=== PATIENT | male | born 1965 | race Caucasian/White ===

== ENCOUNTER 2016-11-03 18:24 | Inpatient (IN) | payer OTHER ==
[2016-11-03 18:24] VITALS: BMI 37.2
--- NOTE | 2016-11-03 19:00 | ED PDOC ---
Arrival/HPI - General Time Seen by Provider: 11/03/16 18:35 Historian: Patient - History of Present Illness Narrative History of Present Illness (Text): 11/03/16 18:56 This 51 yo male presents to this ED c/o severe LLQ abdominal pain x 2 days. Patient stated pain is worsen with movement and sitting, and improves if he lays down. Patient denies similar symptoms in the past. Denies sob, cp, vomiting, diarrhea, constipation, rash, trauma, urinary symptoms, testicular pain, back pain, rectal bleeding, or hematuria. Time/Duration: Other (2 days) Symptom Onset: Sudden Symptom Course: Worsening Quality: Aching Severity Level: 6 Context: Home Past Medical History - Provider Review Nursing Documentation Reviewed: Yes - Tetanus Immunization Tetanus Immunization: Unknown - Cardiac Hx Cardiac Disorders: Yes Hx Angina: No Hx Cardiac Arrhythmia: No Hx Circulatory Problems: No Hx Congestive Heart Failure: No Hx Heart Murmur: No Hx Heart Transplant: No Hx Hypertension: Yes Hx Internal Defibrillator: No Hx Mitral Valve Prolapse: No Hx Pacemaker: No Hx Peripheral Edema: No Hx Peripheral Vascular Disease: No - Pulmonary Hx Respiratory Disorders: Yes Hx Asthma: No Hx Bronchitis: No Hx Chronic Obstructive Pulmonary Disease (COPD): No Hx Emphysema: No Hx Pneumonia: Yes Hx Respiratory Aspiration: No Hx Respiratory Tract Infection: No Hx Sleep Apnea: No Hx Tuberculosis: No - Neurological Hx Neurological Disorder: No Hx Alzheimer's Disease: No HX Cerebrovascular Accident: No Hx Dementia: No Hx Dizziness: No Hx Meningitis: No Hx Migraine: No Hx Parkinson's Disease: No Hx Seizures: No Hx Transient Ischemic Attacks (TIA): No - HEENT Hx HEENT Disorder: No Hx Blind: No Hx Cataracts: No Hx Deafness: No Hx Difficulty Chewing: No Hx Epistaxis: No Hx Glaucoma: No Hx Macular Degeneration: No - Renal Hx Renal Disorder: No Hx Dialysis: No Hx Kidney Stones: No Hx Neurogenic Bladder: No Hx Pyelonephritis: No Hx Renal Cancer: No Hx Renal Failure: No - Endocrine/Metabolic Hx Endocrine Disorders: Yes Hx Adrenal Cancer: No Hx Diabetes Insipidus: No Hx Diabetes Mellitus Type 1: No Hx Diabetes Mellitus Type 2: Yes Hx Hyperthyroidism: No Hx Hypothyroidism: No Hx Systemic Lupus Erythematosus: No - Hematological/Oncological Hx Blood Disorders: No Hx AIDS: No Hx Anemia: No Hx Cancer: No Hx Chemotherapy: No Hx Cirrhosis: No Hx Hemophilia: No Hx Hepatitis A: No Hx Hepatitis B: No Hx Hepatitis C: No Hx Metastasis: No Hx Shingles: No Hx Sickle Cell Disease: No Hx Unexplained Bleeding: No - Integumentary Hx Dermatological Disorder: No Hx Basal Cell Carcinoma: No Hx Eczema: No Hx Melanoma: No Hx Psoriasis: No Hx Squamous Cell Carcinoma: No - Musculoskeletal/Rheumatological Hx Musculoskeletal Disorders: No Hx Arthritis: No Hx Back Pain: No Hx Degenerative Joint Disease: No Hx Falls: No Hx Fractures: No Hx Gout: No Hx Herniated Disk: No Hx Myasthenia Gravis: No Hx Osteoarthritis: No Hx Osteomyelitis: No Hx Osteoporosis: No Hx Rhabdomyolysis: No Hx Spinal Stenosis: No Hx Unsteady Gait: No - Gastrointestinal Hx Gastrointestinal Disorders: No Hx Colostomy: No Hx Crohn's Disease: No Hx Diverticulitis: No Hx Gall Bladder Disease: No Hx Gastroesophageal Reflux: No Hx Gastrointestinal Ulcer: No Hx Ileostomy: No Hx Liver Failure: No Hx Pancreatitis: No HX Swallowing Problems: No - Genitourinary/Gynecological Hx Genitourinary Disorders: No Hx Hematuria: No Hx Incontinence: No Hx Prostate Problems: No Hx Sexually Transmitted Diseases: No Hx Urinary Tract Infection: No - Psychiatric Hx Psychophysiologic Disorder: No Hx Anxiety: No Hx Bipolar Disorder: No Hx Depression: No Hx Emotional Abuse: No Hx Hallucinations: No Hx Panic Disorder: No Hx Paranoia: No Hx Post Traumatic Stress Disorder: No Hx Psychosis: No Hx Physical Abuse: No Hx Schizophrenia: No Hx Sexual Abuse: No Hx Substance Use: Yes - Past Surgical History Past Surgical History: No Previous - Surgical History Hx Amputation: No Hx Appendectomy: No Hx Cardiac Catheterization: No Hx Cholecystectomy: No Hx Coronary Stent: No Hx Gastric Bypass Surgery: No Hx Hysterectomy: No Hx Inguinal Hernia Repair: No Hx Joint Replacement: No Hx Kidney Transplant: No Hx Liver Transplant: No Hx Mastectomy: No Hx Musculoskeletal Surgery: No Hx Open Heart Surgery: No Hx Orthopedic Surgery: No Hx Splenectomy: No Hx Valve Replacement: No - Suicidal Assessment Feels Threatened In Home Enviroment: No Family/Social History - Physician Review Nursing Documentation Reviewed: Yes Family/Social History: No Known Family HX Smoking Status: Heavy Smoker > 10 Cigarettes Daily Hx Alcohol Use: Yes Hx Substance Use: Yes Hx Substance Use Treatment: No Allergies/Home Meds Allergies/Adverse Reactions: Allergies pcn Allergy (Uncoded 11/03/16 18:58) ANAPHYLAXIS Home Medications: Home Meds Medication Instructions Recorded Confirmed Metformin Hydrochloride [Metformin] 500 mg PO DAILY 11/25/14 11/03/16 Review of Systems - Review of Systems Constitutional: Normal. absent: Fatigue, Weight Change, Fevers, Night Sweats Eyes: Normal ENT: Normal Respiratory: Normal Cardiovascular: Normal Gastrointestinal: Abdominal Pain ((+) LLQ abdominal pain). absent: Stool Changes, Constipation, Diarrhea, Nausea, Vomiting, Appetite Changes, Hematochezia, Hematemesis, Anorexia Genitourinary Male: Normal. absent: Dysuria, Frequency, Hematuria, Urinary Output Changes, Other Musculoskeletal: Normal Skin: Normal Neurological: Normal Endocrine: Normal Hemo/Lymphatic: Normal Psychiatric: Normal Physical Exam Vital Signs Temp Pulse Resp BP Pulse Ox 11/03/16 21:14 99.7 F H 11/03/16 18:35 98.1 F 94 H 18 134/88 99 Temperature: Afebrile Blood Pressure: Normal Pulse: Regular Respiratory Rate: Normal Appearance: Positive for: Well-Appearing, Non-Toxic, Comfortable Pain Distress: None Mental Status: Positive for: Alert and Oriented X 3 - Systems Exam Head: Present: Atraumatic, Normocephalic Pupils: Present: PERRL Extroacular Muscles: Present: EOMI Conjunctiva: Present: Normal Mouth: Present: Moist Mucous Membranes Neck: Present: Normal Range of Motion Respiratory/Chest: Present: Clear to Auscultation, Good Air Exchange. No: Respiratory Distress, Accessory Muscle Use Cardiovascular: Present: Regular Rate and Rhythm, Normal S1, S2. No: Murmurs Abdomen: Present: Tenderness ((+) moderate LLQ tenderness on palpation. No erythema, ecchymosis, hernia, guarding, or rebound.), Normal Bowel Sounds. No: Distention, Peritoneal Signs, Rebound, Guarding, McBurney's Point Tender, Rovsing's Sign Present Genitourinary Male: Present: Normal External Genitalia, Circumcised Penis. No: Lesions, Penile Discharge, Testicle Tenderness, Penile Swelling, Masses, Erythema, Hernias, Testicle Swelling Back: Present: Normal Inspection. No: CVA Tenderness Upper Extremity: Present: Normal Inspection, Normal ROM, NORMAL PULSES, Neurovascularly Intact, Capillary Refill < 2s. No: Cyanosis, Edema Lower Extremity: Present: Normal Inspection. No: Edema Neurological: Present: GCS=15, CN II-XII Intact, Speech Normal, Motor Func Grossly Intact, Normal Sensory Function, Normal Cerebellar Funct, Gait Normal Skin: Present: Warm, Dry, Normal Color. No: Rashes Psychiatric: Present: Alert, Oriented x 3 Medical Decision Making ED Course and Treatment: 11/03/16 21:[address] Navas regarding patient c/o LLQ abdominal pain, leukocytosis, fever, and CT scan shows diverticulitis. Patient continues with pain. Re-evaluation Time: 21:54 Reassessment Condition: Re-examined, Improving,but remains with symptoms - Lab Interpretations Lab Results: 11/03/16 19:35 11/03/16 19:35 Lab Results 11/03/16 21:05: pO2 37, VBG pH 7.36, VBG pCO2 52.0, VBG HCO3 29.4 H, VBG Total CO2 31.0 H, VBG O2 Sat (Calc) 75.6 H, VBG Base Excess 2.8 H, VBG Potassium 4.1, Sodium 133.0, Chloride 103.0, Glucose 87, Lactate 0.7, FiO2 21.0, Venous Blood Potassium 4.1 11/03/16 19:54: Urine Color Yellow, Urine Appearance Clear, Urine pH 6.0, Ur Specific [place] >= 1.030, Urine Protein 100 H, Urine Glucose (UA) Negative, Urine Ketones Negative, Urine Blood Trace-intact H, Urine Nitrate Negative, Urine Bilirubin Negative, Urine Urobilinogen 0.2, Ur Leukocyte Esterase Negative , Urine RBC 2 - 5, Urine WBC 0 - 2, Ur Epithelial Cells 0 - 2, Urine Bacteria Mod 11/03/16 19:35: WBC 15.3 H, RBC 4.65, Hgb 14.3, Hct 42.2, MCV 90.8, MCH 30.8, MCHC 33.9, RDW 13.7, Plt Count 318, MPV 9.6, Gran % 61.5, Lymph % (Auto) 25.5, [place] % (Auto) 6.8 H, Eos % (Auto) 5.7 H, Baso % (Auto) 0.5, Gran # 9.41 H, Lymph # 3.9 H, [place] # 1.0 H, Eos # 0.9 H, Baso # 0.08, Sodium 136, Chloride 97 L , Potassium 4.0, Carbon Dioxide 31, Anion Gap 12, BUN 14, Creatinine 0.9, Est GFR ( Amer) > 60, Est GFR (Non-Af Amer) > 60, Random Glucose 101, Calcium 9.2, Total Bilirubin 0.8, AST 21, ALT 20, Alkaline Phosphatase 84, Total Protein 7.6, Albumin 4.1, Globulin 3.5, Albumin/Globulin Ratio 1.2, Lipase 47 - RAD Interpretation Narrative RAD Interpretations (Text): 11/03/16 21:27 Patient Name: RAMSES CRAWFORD FINDINGS: Hypoventilatory changes at the lung bases. The spleen, pancreas and left adrenal gland demonstrate no acute abnormalities. Evidence of fatty infiltration of the liver. 3.5 cm fat containing lesion in the right adrenal gland, appearance most consistent with a myelolipoma. The kidneys are symmetric with no evidence of hydronephrosis. Multiple subcentimeter hypoattenuating lesions in the bilateral kidneys which are too small to characterize. Atherosclerosis. No small bowel obstruction. Normal caliber appendix. Colonic diverticula. Segment of sigmoid colon demonstrates bowel wall thickening and surrounding inflammatory stranding with appearance most consistent with acute diverticulitis. Trace free fluid. No free air. Bilateral L5 pars defect. Degenerative changes. IMPRESSION: Acute diverticulitis. Please see additional details/findings as above. Some of the above findings may warrant followup evaluation. Thank you for allowing us to participate in the care of your patient. Dictated and Authenticated by: Katherine Aviles MD 11/03/2016 9:05 PM Eastern Time ([place] & [place]) Radiology Orders: 11/03/16 19:06 ABD & PELVIS IV CONTRAST ONLY [CT] Stat - Medication Orders Current Medication Orders: Aspirin (Aspirin Chewable) 81 mg PO DAILY ESTHER Last Admin: 11/04/16 09:48 Dose: 81 MG Atorvastatin Calcium (Lipitor) 40 mg PO HS ESTHER Enoxaparin Sodium (Lovenox) 40 mg SC DAILY ESTHER PRN Reason: Protocol Last Admin: 11/04/16 09:48 Dose: 40 MG Protocol for PTT Monitoring Document 11/04/16 09:48 MV (Rec: 11/04/16 09:48 [id number] Protocol Protocol for PTT Monitoring Following clinical pathway protocol (regime/therapy) Subcutaneous Administrations Document 11/04/16 09:48 MV (Rec: 11/04/16 09:48 MV [id number] Injection Site MAR Injection Site Right Abdomen Charges for Administration # of Subcutaneous Administrations 1 Hydromorphone HCl (Dilaudid) 0.5 mg IVP Q3H PRN PRN Reason: Pain, moderate (4-7) Hydromorphone HCl (Dilaudid) 1 mg IVP Q3H PRN PRN Reason: Pain, severe (8-10) Last Admin: 11/04/16 05:24 Dose: 1 MG [facility] Pain Assessment Document 11/04/16 05:24 [facility] (Rec: 11/04/16 05:24 [facility] [id number]) Pain Reassessment Is this a pain reassessment? Yes Sleep Is patient sleeping during reassessment? No Presence of Pain Presence of Pain Yes Pain Scale Used Pain Scale Used Numeric Location Left, Right or Bilateral Bilateral Pain Location Body Site Abdomen Description Description Constant IVP Administration Document 11/04/16 05:24 [facility] (Rec: 11/04/16 05:24 [id number] Charges for Administration # of IVP Administrations 1 Re-Assess: [facility] Pain Assessment Document 11/04/16 06:24 [facility] (Rec: 11/04/16 07:03 [facility] [id number]) Pain Reassessment Is this a pain reassessment? Yes Sleep Is patient sleeping during reassessment? No Presence of Pain Presence of Pain No Metronidazole (Flagyl) 100 mls @ 100 mls/hr IVPB Q8 ESTHER PRN Reason: Protocol Last Admin: 11/04/16 14:00 Dose: 100 MLS/HR eMAR Start Stop Document 11/04/16 14:00 MV (Rec: 11/04/16 15:39 MV [id number]) Intravenous Solution Start Date 11/04/16 Start Time 14:00 Sodium Chloride (Sodium Chloride 0.9%) 1,000 mls @ 100 mls/hr IV .Q10H [facility] Last Admin: 11/04/16 00:54 Dose: 100 MLS/HR eMAR Start Stop Document 11/04/16 00:54 RD (Rec: 11/04/16 00:54 RD [id number]) Intravenous Solution Start Date 11/04/16 Start Time 00:54 Levofloxacin/Dextrose (Levaquin 750mg) 150 mls @ 100 mls/hr IVPB DAILY [facility] Insulin Human Lispro (Humalog Low) 0 units SC ACHS ESTHER PRN Reason: Protocol Last Admin: 11/04/16 17:02 Dose: MAR Blood Glucose Document 11/04/16 17:02 MV (Rec: 11/04/16 17:03 MV [id number]) Blood Glucose Finger Stick Blood Glucose (70-120) 87 Nicotine (Nicoderm Cq) 1 patch TD DAILY [facility] Last Admin: 11/04/16 09:48 Dose: 1 PATCH MAR Patch Placement/Removal Document 11/04/16 09:48 MV (Rec: 11/04/16 09:48 [id number] Patch Removal Removal of previous patch done No Patch Placement Left, Right or Bilateral Left Pain Location Body Site Arm Ondansetron HCl (Zofran Inj) 4 mg IVP Q6H PRN PRN Reason: Nausea/Vomiting Last Admin: 11/04/16 07:06 Dose: 4 MG IVP Administration Document 11/04/16 07:06 GISELA (Rec: 11/04/16 07:06 GISELA [id number]) Charges for Administration # of IVP Administrations 1 Pantoprazole Sodium (Protonix Ec Tab) 40 mg PO 0630 [facility] Last Admin: 11/04/16 05:31 Dose: Not Given Non-Admin Reason: NPO Discontinued Medications Hydromorphone HCl (Dilaudid) 1 mg IVP STAT STA Stop: 11/03/16 21:29 Last Admin: 11/03/16 21:47 Dose: 1 MG IVP Administration Document 11/03/16 21:47 RD (Rec: 11/03/16 21:47 [id number] Charges for Administration # of IVP Administrations 1 Sodium Chloride (Sodium Chloride 0.9%) 1,000 mls @ 1,000 mls/hr IV .Q1H STA Stop: 11/03/16 20:04 Last Admin: 11/03/16 19:40 Dose: 1,000 MLS/HR eMAR Start Stop Document 11/03/16 19:40 RD (Rec: 11/03/16 19:40 RD [id number] Intravenous Solution Start Date 11/03/16 Start Time 19:40 End Date 11/03/16 End time 20:40 Total Infusion Time 60 Levofloxacin/Dextrose (Levaquin 750mg) 150 mls @ 100 mls/hr IVPB STAT STA Stop: 11/03/16 22:56 Last Admin: 11/03/16 21:47 Dose: 100 MLS/HR eMAR Start Stop Document 11/03/16 21:47 RD (Rec: 11/03/16 21:47 RD [email or web address] Intravenous Solution Start Date 11/03/16 Start Time 21:47 End Date 11/03/16 End time 23:17 Total Infusion Time 90 Metronidazole (Flagyl) 100 mls @ 100 mls/hr IVPB STAT STA PRN Reason: Protocol Stop: 11/03/16 22:27 Last Admin: 11/03/16 23:48 Dose: 100 MLS/HR eMAR Start Stop Document 11/03/16 23:48 RD (Rec: 11/03/16 23:48 RD [id number]) Intravenous Solution Start Date 11/03/16 Start Time 23:48 End Date 11/04/16 End time 00:48 Total Infusion Time 60 Morphine Sulfate (Morphine) 4 mg IVP STAT STA Stop: 11/03/16 19:06 Last Admin: 11/03/16 19:40 Dose: 4 MG MAR Pain Assessment Document 11/03/16 19:40 RD (Rec: 11/03/16 19:40 RD [id number] Pain Reassessment Is this a pain reassessment? No Sleep Is patient sleeping during reassessment? No Presence of Pain Presence of Pain Yes IVP Administration Document 11/03/16 19:40 RD (Rec: 11/03/16 19:40 RD [email or web address] Charges for Administration # of IVP Administrations 1 Ondansetron HCl (Zofran Inj) 4 mg IVP STAT STA Stop: 11/03/16 19:06 Last Admin: 11/03/16 19:39 Dose: 4 MG IVP Administration Document 11/03/16 19:39 RD (Rec: 11/03/16 19:39 RD [email or web address] Charges for Administration # of IVP Administrations 1 ED OBSERVATION Date of observation admission: 11/03/16 Time of observation admission: 19:00 - Observation admission statement Patient is being placed in observation because:: Abdominal pain - Goals of Observation Goals of observation are:: Labs, UA, Ct scan, revaluation Disposition/Present on Arrival - Present on Arrival Any Indicators Present on Arrival: No History of DVT/PE: No History of Uncontrolled Diabetes: No Urinary Catheter: No History Surgical Site Infection Following: None - Disposition Have Diagnosis and Disposition been Completed?: Yes Diagnosis: Diverticulitis, Intractable abdominal pain Disposition: HOSPITALIZED Disposition Time: 21:55 Patient Plan: Admission Patient Problems: Current Active Problems Problem Status Diagnosed Chest pain Acute Diverticulitis Acute Dyspnea Acute Intractable abdominal pain Acute Obesity Acute Pericardial effusion Acute Pleural effusion Acute Pneumonia Acute Condition: STABLE
[2016-11-03] MEDS ORDERED: Sodium Chloride 0.9% 1,000 ML IV STA (19:05)
[2016-11-03] MEDS ORDERED: Morphine 4 mg/ml ISec IVP STA (19:05)
[2016-11-03 19:49] LABS: ADD MANUAL DIFF? NO
[2016-11-03 20:00] LABS: ALB/GLOB RATIO 1.2 (1.1-1.8); ALKALINE PHOSPHATASE 84 U/L (38-133); ALT/SGPT 20 U/L (7-56); AST/SGOT 21 U/L (15-59); BILIRUBIN,TOTAL 0.8 mg/dL (0.2-1.3); BLOOD UREA NITROGEN 14 mg/dL (7-21); CALCIUM 9.2 mg/dL (8.4-10.5); CARBON DIOXIDE 31 mmol/L (21-33); CHLORIDE 97 mmol/L (98-107); GFR AFRICAN-AMERICAN > 60; GLUCOSE,RANDOM 101 mg/dL (70-110); LIPASE 47 U/L (23-300); SODIUM 136 mmol/L (132-148); TOTAL PROTEIN 7.6 g/dL (5.8-8.3)
[2016-11-03 20:04] LABS: URINE BILIRUBIN NEGATIVE (NEGATIVE); URINE BLOOD TRACE-INTACT (NEGATIVE); URINE GLUCOSE (UA) NEGATIVE (NEGATIVE); URINE KETONE NEGATIVE (NEGATIVE); URINE LEUKOCYTE ESTERASE NEGATIVE Leu/uL (NEGATIVE); URINE PROTEIN 100 mg/dL (<30 mg/dL); URINE UROBILINOGEN 0.2 E.U./dL (<1 E.U./dL)
[2016-11-03 20:05] LABS: BASO # 0.08 K/mm3 (0.0-2.0); BASO % 0.5 % (0.0-3.0); EOS # 0.9 (0.0-0.7); EOS % 5.7 % (1.5-5.0); GRAN # 9.41 (1.4-6.5); GRAN % 61.5 % (50.0-68.0); HEMATOCRIT 42.2 % (42.0-52.0); LYMPH # 3.9 (1.2-3.4); LYMPH % 25.5 % (22.0-35.0); MEAN CELL VOLUME 90.8 fL (80.0-105.0); MEAN CORPUSCULAR HEMOGLOBIN 30.8 pg (25.0-35.0); MEAN CORPUSCULAR HGB CONC 33.9 g/dl (31.0-37.0); MEAN PLATELET VOLUME 9.6 fl (7.0-11.0); MONO % 6.8 % (1.0-6.0); PLATELET COUNT 318 10^3/uL (120.0-450.0); RED CELL DISTRIBUTION WIDTH 13.7 % (11.5-14.5); WHITE BLOOD COUNT 15.3 10^3/ul (4.5-11.0)
[2016-11-03 20:07] LABS: URINE APPEARANCE CLEAR (CLEAR); URINE COLOR YELLOW (YELLOW)
[2016-11-03 20:28] LABS: URINE EPITHELIAL CELLS 0 - 2 /hpf (0-5); URINE WBC 0 - 2 /hpf (0-6)
[2016-11-03 20:29] LABS: URINE BACTERIA MOD (NEG)
--- NOTE | 2016-11-03 21:05 | CT ---
EXAM: CT Abdomen and Pelvis With Intravenous Contrast. CLINICAL HISTORY: 51 years old, male; Pain; Abdominal pain; Localized; Left lower quadrant (llq); Additional info: Llq abdominal pain TECHNIQUE: Axial computed tomography images of the abdomen and pelvis with intravenous contrast. This CT exam was performed using one or more of the following dose reduction techniques: automated exposure control, adjustment of the mA and/or kV according to patient size, and/or use of iterative reconstruction technique. Coronal and sagittal reformatted images were created and reviewed. CONTRAST: 140 mL of OMNI 350 administered intravenously. COMPARISON: No relevant prior studies available. FINDINGS: Hypoventilatory changes at the lung bases. The spleen, pancreas and left adrenal gland demonstrate no acute abnormalities. Evidence of fatty infiltration of the liver. 3.5 cm fat containing lesion in the right adrenal gland, appearance most consistent with a myelolipoma. The kidneys are symmetric with no evidence of hydronephrosis. Multiple subcentimeter hypoattenuating lesions in the bilateral kidneys which are too small to characterize. Atherosclerosis. No small bowel obstruction. Normal caliber appendix. Colonic diverticula. Segment of sigmoid colon demonstrates bowel wall thickening and surrounding inflammatory stranding with appearance most consistent with acute diverticulitis. Trace free fluid. No free air. Bilateral L5 pars defect. Degenerative changes. IMPRESSION: Acute diverticulitis. Please see additional details/findings as above. Some of the above findings may warrant followup evaluation.
[2016-11-03 21:13] LABS: VENOUS BLOOD GAS BASE EXCESS 2.8 mmol/L (0.0-2.0); VENOUS BLOOD PH 7.36 (7.32-7.43)
[2016-11-03] MEDS ORDERED: metroNIDAZOLE IV 500 mg/100 ml 100 ML IVPB STA (21:28)
[2016-11-03] MEDS ORDERED: HYDROmorphone 1 mg/ml ISec IVP STA (21:28)
--- NOTE | 2016-11-03 22:02 | CP.PCM.HP ---
<WeiJosefa - Last Filed: 11/04/16 00:09> History of Present Illness - History of Present Illness History of Present Illness: PGY-[address] Navas CC: Acute diverticulitis and LLQ abdominal pain HPI: 51 years old [place] male recently on penicillin for a cold 3 weeks ago ( who turned out to be allergic) and flew back from [place] 2 weeks ago, with PMHx of CAD s/p angioplsaty, Diabetes, active smoker, comes in with sudden worsening of abdominal pain. The pain started diffusely on b/l lower abdomen 5 days ago, crampy, 1/10 in pain scale, comes and go. Today, while driving, pt felt sudden aggravation of the abdominal pain as the car rocks on bumpy roads. The pain was crampy 8-9/10, localizes in LLQ, radiating to L lower flank, with chills and nausea. Pain does not travel. Movement, coughing, urination makes it worse. Nothing relieves it. Pt never had colonoscopy or egd before In the ED, pt is noted to have a fever of 99.7, leukocytosis 15.3. LFT normal. CT scan shows acute diverticulitis. Patient continues with pain. ROS - (+) chills/fever (+) decreased appeptite, abdominal pain, and nausea. Denies vomiting, constipation, diarrhea, dysuria, cp, sob PMH: Coronary artery disease-1 vessel s/p angioplasty (Diffuse coronary atherosclerosis and vasospastic disease) Obesity, Tobacco abuse, Marijuana use Non-IDDM-2 since 2014 Constipation PSH: Angioplasty 2016. 1 vessel 90% stenosis, s/p PTCA FH: DM - mother and sister Social: tobacco 1 ppd x 35 yrs, denies etoh use; + marijuana use; lives at home with his family Allergies: PCN Med: Metformin 500 qd, Lipitor, ASA 81 PMD: Dr. Mathis Senior Risk Analyst Dr. Hernandez Present on Admission - Present on Admission Any Indicators Present on Admission: No Past Patient History - Infectious Disease Hx of Infectious Diseases: None - Tetanus Immunizations Tetanus Immunization: Unknown - Past Social History Smoking Status: Heavy Smoker > 10 Cigarettes Daily - CARDIAC Hx Cardiac Disorders: Yes Hx Angina: No Hx Cardia Arrhythmia: No Hx Circulatory Problems: No Hx Congestive Heart Failure: No Hx Heart Murmur: No Hx Heart Transplant: No Hx Hypertension: Yes Hx Internal Defibrillator: No Hx Mitral Valve Prolapse: No Hx Pacemaker: No Hx Peripheral Edema: No Hx Peripheral Vascular Disease: No - PULMONARY Hx Respiratory Disorders: Yes Hx Asthma: No Hx Bronchitis: No Hx Chronic Obstructive Pulmonary Disease (COPD): No Hx Emphysema: No Hx Pneumonia: Yes Hx Respiratory Aspiration: No Hx Respiratory Tract Infection: No Hx Sleep Apnea: No Hx Tuberculosis: No - NEUROLOGICAL Hx Neurological Disorder: No Hx Alzheimer's Disease: No HX Cerebrovascular Accident: No Hx Dementia: No Hx Dizziness: No Hx Meningitis: No Hx Migraine: No Hx Parkinson's Disease: No Hx Seizures: No Hx Transient Ischemic Attacks (TIA): No - HEENT Hx HEENT Problems: No Hx Blind: No Hx Cataracts: No Hx Deafness: No Hx Difficulty Chewing: No Hx Epistaxis: No Hx Glaucoma: No Hx Macular Degeneration: No - RENAL Hx Chronic Kidney Disease: No Hx Dialysis: No Hx Kidney Stones: No Hx Neurogenic Bladder: No Hx Pyelonephritis: No Hx Renal (Kidney) Cancer: No Hx Renal Failure: No - ENDOCRINE/METABOLIC Hx Endocrine Disorders: Yes Hx Adrenal Cancer: No Hx Diabetes Insipidus: No Hx Diabetes Mellitus Type 1: No Hx Diabetes Mellitus Type 2: Yes Hx Hyperthyroidism: No Hx Hypothyroidism: No Hx Systemic Lupus Erythematosus: No - HEMATOLOGICAL/ONCOLOGICAL Hx Blood Disorders: No Hx AIDS: No Hx Anemia: No Hx Cancer: No Hx Chemotherapy: No Hx Cirrhosis: No Hx Hemophilia: No Hx Hepatitis A: No Hx Hepatitis B: No Hx Hepatitis C: No Hx Metastesis: No Hx Shingles: No Hx Sickle Cell Disease: No Hx Unexplained Bleeding: No - INTEGUMENTARY Hx Dermatological Problems: No Hx Basil Cell: No Hx Eczema: No Hx Melanoma: No Hx Psoriasis: No Hx Squamous Cell: No - MUSCULOSKELETAL/RHEUMATOLOGICAL Hx Musculoskeletal Disorders: No Hx Arthritis: No Hx Back Pain: No Hx Degenerative Joint Disease: No Hx Falls: No Hx Fractures: No Hx Gout: No Hx Herniated Disk: No Hx Myasthenia Gravis: No Hx Osteoarthritis: No Hx Osteomyelitis: No Hx Osteoporosis: No Hx Rhabdomyolysis: No Hx Spinal Stenosis: No Hx Unsteady Gait: No - GASTROINTESTINAL Hx Gastrointestinal Disorders: No Hx Colostomy: No Hx Crohn's Disease: No Hx Diverticulitis: No Hx Gall Bladder Disease: No Hx Gastroesophageal Reflux: No Hx Ileostomy: No Hx Liver Failure: No Hx Pancreatitis: No HX Swallowing Problems: No - GENITOURINARY/GYNECOLOGICAL Hx Genitourinary Disorders: No Hx Hematuria: No Hx Incontinence: No Hx Prostate Problems: No Hx Sexually Transmitted Disorders: No Hx Urinary Tract Infection: No - PSYCHIATRIC Hx Psychophysiologic Disorder: No Hx Anxiety: No Hx Bipolar Disorder: No Hx Depression: No Hx Emotional Abuse: No Hx Hallucinations: No Hx Panic Symptoms: No Hx Paranoia: No Hx Post Traumatic Stress Disorder: No Hx Psychosis: No Hx Physical Abuse: No Hx Schizophrenia: No Hx Sexual Abuse: No Hx Substance Use: Yes - SURGICAL HISTORY Hx Amputation: No Hx Appendectomy: No Hx Cardiac Catheterization: No Hx Cholecystectomy: No Hx Coronary Stent: No Hx Gastric Bypass Surgery: No Hx Hysterectomy: No Hx Joint Replacement: No Hx Kidney Transplant: No Hx Liver Transplant: No Hx Mastectomy: No Hx Musculoskeletal Surgery: No Hx Open Heart Surgery: No Hx Orthopedic Surgery: No Hx Splenectomy: No Hx Valve Replacement: No Meds Allergies/Adverse Reactions: Allergies Allergy/AdvReac Type Severity Reaction Status Date / Time pcn Allergy ANAPHYLAXIS Uncoded 11/03/16 18:58 Physical Exam - Constitutional Appears: No Acute Distress - Head Exam Head Exam: ATRAUMATIC, NORMOCEPHALIC - Eye Exam Eye Exam: EOMI, Normal appearance, PERRL - ENT Exam ENT Exam: Mucous Membranes Moist - Neck Exam Neck exam: Negative for: Meningismus Additional comments: no jvd - Respiratory Exam Respiratory Exam: Clear to Auscultation Bilateral, NORMAL BREATHING PATTERN. absent: Accessory Muscle Use, Rales, Rhonchi, Wheezes - Cardiovascular Exam Cardiovascular Exam: REGULAR RHYTHM, +S1, +S2. absent: Systolic Murmur - GI/Abdominal Exam GI & Abdominal Exam: Normal Bowel Sounds, Soft, Tenderness (LLQ). absent: Distended, Firm, Guarding, Rigid Additional comments: Negative borjas, rovsing, colby, mcburney - Extremities Exam Extremities exam: Positive for: normal capillary refill, pedal pulses present. Negative for: calf tenderness - Back Exam Back exam: absent: CVA tenderness (L), CVA tenderness (R) - Neurological Exam Neurological exam: Alert, Oriented x3 - Psychiatric Exam Psychiatric exam: Normal Affect, Normal Mood - Skin Skin Exam: Dry, Normal Color, Warm Results - Vital Signs Recent Vital Signs: Last Vital Signs Temp 99.7 F H 11/03/16 21:14 Pulse 94 H 11/03/16 18:35 Resp 18 11/03/16 18:35 BP 134/88 11/03/16 18:35 Pulse Ox 99 11/03/16 18:35 - Labs Result Diagrams: 11/03/16 19:35 11/03/16 19:35 Labs: Laboratory Results - last 24 hr 11/03/16 11/03/16 11/03/16 19:35 19:54 21:05 WBC 15.3 H RBC 4.65 Hgb 14.3 Hct 42.2 MCV 90.8 MCH 30.8 MCHC 33.9 RDW 13.7 Plt Count 318 MPV 9.6 Gran % 61.5 Lymph % (Auto) 25.5 Ponce % (Auto) 6.8 H Eos % (Auto) 5.7 H Baso % (Auto) 0.5 Gran # 9.41 H Lymph # 3.9 H Ponce # 1.0 H Eos # 0.9 H Baso # 0.08 pO2 37 VBG pH 7.36 VBG pCO2 52.0 VBG HCO3 29.4 H VBG Total CO2 31.0 H VBG O2 Sat (Calc) 75.6 H VBG Base Excess 2.8 H VBG Potassium 4.1 Glucose 87 Lactate 0.7 FiO2 21.0 Sodium 136 133.0 Potassium 4.0 Chloride 97 L 103.0 Carbon Dioxide 31 Anion Gap 12 BUN 14 Creatinine 0.9 Est GFR ( Amer) > 60 Est GFR (Non-Af Amer) > 60 Random Glucose 101 Calcium 9.2 Total Bilirubin 0.8 AST 21 ALT 20 Alkaline Phosphatase 84 Total Protein 7.6 Albumin 4.1 Globulin 3.5 Albumin/Globulin Ratio 1.2 Lipase 47 Venous Blood Potassium 4.1 Urine Color Yellow Urine Appearance Clear Urine pH 6.0 Ur Specific [place] >= 1.030 Urine Protein 100 H Urine Glucose (UA) Negative Urine Ketones Negative Urine Blood Trace-intact H Urine Nitrate Negative Urine Bilirubin Negative Urine Urobilinogen 0.2 Ur Leukocyte Esterase Negative Urine RBC 2 - 5 Urine WBC 0 - 2 Ur Epithelial Cells 0 - 2 Urine Bacteria Mod Assessment & Plan - Assessment and Plan (Free Text) Plan: 51 years old [place] male recently on penicillin for a cold 3 weeks ago and flew back from [place] 2 weeks ago, with PMHx of CAD s/p angioplsaty 2016, Diabetes, active smoker, comes in for sudden worsening of abdominal pain. Pt is noted to have a fever of 99.7, leukocytosis 15.3. LFT normal. CT scan shows acute diverticulitis. Patient continues with pain. Pt is admitted for Acute diverticulitis and LLQ abdominal pain SIRS 1 with GI source Acute diverticulitis - T 99.7 and leukocytosis 15.3 - supportive care - lactate 0.7 - Flagyl 500 IV q8 Abdominal Pain - bowel rest for npw - Clear liquid diet AM - Dilaudid 0.5 q3; 1 q3 - NS @ 100 - zofran Hx non-IDDM - ISSS - A1C - diabetes education Hx CAD - EKG - continue ASA and lipitor - lipid panel Active tobacco abuse - area counselor for cessation - nicoderm Proteinuria - Consider ACEi outpatient prophylaxis - protonix - lovenox S/R/D/w Dr. Navas - Date & Time Date: 11/03/16 Time: 22:32 <Brady Navas Q - Last Filed: 11/04/16 07:13> Results - Vital Signs Recent Vital Signs: Last Vital Signs Temp 97.7 F 11/04/16 07:11 Pulse 74 11/04/16 07:11 Resp 18 11/04/16 07:11 BP 146/98 H 11/04/16 07:11 Pulse Ox 94 L 11/04/16 07:11 - Labs Result Diagrams: 11/03/16 19:35 11/03/16 19:35 Attending/Attestation - Attestation I have personally seen and examined this patient.: Yes I have fully participated in the care of the patient.: Yes I have reviewed all pertinent clinical information: Yes
[2016-11-03] MEDS ORDERED: HYDROmorphone 0.5 mg/0.5 ml ISec IVP PRN (23:08)
[2016-11-03] MEDS: HYDROmorphone 1 mg/ml ISec IVP PRN (23:17)
[2016-11-04] MEDS: Sodium Chloride 0.9% 1,000 ML IV SCH (00:54)
[2016-11-04] MEDS: HYDROmorphone 1 mg/ml ISec IVP PRN ×3 (01:45→21:06)
[2016-11-04] MEDS: metroNIDAZOLE IV 500 mg/100 ml 100 ML IVPB SCH ×3 (05:24→21:05)
[2016-11-04] MEDS: Pantoprazole 40 mg EC Tab PO SCH (05:31)
[2016-11-04] MEDS ORDERED: metroNIDAZOLE IV 250mg/50 ml 50 ML IVPB SCH (06:00)
[2016-11-04 07:52] LABS: ADD MANUAL DIFF? NO
[2016-11-04 07:58] LABS: BASO # 0.06 K/mm3 (0.0-2.0); BASO % 0.5 % (0.0-3.0); EOS # 0.9 (0.0-0.7); EOS % 7.2 % (1.5-5.0); GRAN # 7.54 (1.4-6.5); GRAN % 59.3 % (50.0-68.0); HEMATOCRIT 38.4 % (42.0-52.0); LYMPH # 3.3 (1.2-3.4); LYMPH % 26.2 % (22.0-35.0); MEAN CELL VOLUME 90.8 fL (80.0-105.0); MEAN CORPUSCULAR HGB CONC 34.1 g/dl (31.0-37.0); MEAN PLATELET VOLUME 9.5 fl (7.0-11.0); MONO # 0.9 (0.1-0.6); MONO % 6.8 % (1.0-6.0); PLATELET COUNT 301 10^3/uL (120.0-450.0); RED CELL DISTRIBUTION WIDTH 13.6 % (11.5-14.5); WHITE BLOOD COUNT 12.7 10^3/ul (4.5-11.0)
[2016-11-04] MEDS: Insulin Lispro (humaLOG) LOW Coverage SC SCH ×4 (08:06→21:42)
[2016-11-04 08:13] LABS: ALB/GLOB RATIO 1.1 (1.1-1.8); ALKALINE PHOSPHATASE 76 U/L (38-133); ALT/SGPT 23 U/L (7-56); AMYLASE 65 U/L (35-125); AST/SGOT 17 U/L (15-59); BILIRUBIN,TOTAL 0.8 mg/dL (0.2-1.3); BLOOD UREA NITROGEN 11 mg/dL (7-21); CALCIUM 8.7 mg/dL (8.4-10.5); CARBON DIOXIDE 29 mmol/L (21-33); CHLORIDE 100 mmol/L (98-107); CHOLESTEROL 137 mg/dL (130-200); GFR AFRICAN-AMERICAN > 60; GLUCOSE,RANDOM 101 mg/dL (70-110); POTASSIUM 3.7 mmol/L (3.6-5.0); SODIUM 135 mmol/L (132-148)
[2016-11-04] MEDS ORDERED: Enoxaparin 40 mg Syringe SC SCH (10:00)
--- NOTE | 2016-11-04 10:31 | CP.PCM.CON ---
<Pablo Espino - Last Filed: 11/04/16 11:23> History of Present Illness - History of Present Illness History of Present Illness: PGY4 GI Fellow Consult Note Patient is a 51 year old Indian male with PMHx significant for DM, CAD who presented to the ED with complaint of abdominal pain. On Monday he noted some lower abdominal pain and bloating/gas pain while shoveling snow. Pain was mild and intermittent and dissipated spontaneously. Thinking this was muscular strain from shoveling, he ignored this. Over the following two days, he developed progressively worsening abdominal pain which eventually localized to the LLQ pain. It became cramping in nature with two episodes of loose stool and was worse with movement. In particular, he noted pain was worse yesterday while he was driving today and going over bumpy pavement. As pain intensified, he developed nausea and chills and decided to come to the ED for further evaluation. Denies any hematochezia, melena, vomiting, weight loss. Initial CT A /P with IV contrast performed in the ED revealed acute sigmoid diverticulitis. PMHx: See HPI PSHx: Coronary angioplasty FHx: Mother/Sister - DM Social: +tobacco 35 pack yrs, Denies EtOH use, + marijuana use Endo: No prior endoscopic evaluations Review of Systems - Constitutional Constitutional: absent: Anorexia, Chills, Fever - EENT Eyes: absent: Change in Vision Nose/Mouth/Throat: absent: Sore Throat - Cardiovascular Cardiovascular: absent: Chest Pain, Dyspnea, Edema - Respiratory Respiratory: absent: Cough, Dyspnea, Excessive Mucous Production - Gastrointestinal Gastrointestinal: Abdominal Pain, Bloating, Cramping, Loose Stools, Nausea. absent: Belching, Constipation, Diarrhea, Dyspepsia, Dysphagia, Early Satiety, Hematochezia, Melena, Temesmus, Vomiting - Genitourinary Genitourinary: absent: Dysuria, Urinary Frequency, Urinary Urgency - Musculoskeletal Musculoskeletal: absent: Back Pain, Neck Pain - Integumentary Integumentary: absent: New Lesions, Rash - Neurological Neurological: absent: Dizziness, Numbness, Focal Weakness - Psychiatric Psychiatric: absent: Anxiety, Depression - Endocrine Endocrine: absent: Polydipsia, Polyphagia, Polyuria - Hematologic/Lymphatic Hematologic: absent: Easy Bleeding, Easy Bruising, Lymphadenopathy Past Patient History - Infectious Disease Hx of Infectious Diseases: None - Tetanus Immunizations Tetanus Immunization: Unknown - Past Social History Smoking Status: Heavy Smoker > 10 Cigarettes Daily - CARDIAC Hx Cardiac Disorders: Yes Hx Hypertension: Yes Other/Comment: CAD s/p angioplasty - PULMONARY Hx Respiratory Disorders: Yes Hx Pneumonia: Yes - NEUROLOGICAL Hx Neurological Disorder: No - HEENT Hx HEENT Problems: No - RENAL Hx Chronic Kidney Disease: No - ENDOCRINE/METABOLIC Hx Endocrine Disorders: Yes Hx Diabetes Mellitus Type 2: Yes - HEMATOLOGICAL/ONCOLOGICAL Hx Blood Disorders: No - INTEGUMENTARY Hx Dermatological Problems: No - MUSCULOSKELETAL/RHEUMATOLOGICAL Hx Musculoskeletal Disorders: No Hx Falls: No - GASTROINTESTINAL Hx Gastrointestinal Disorders: Yes Hx Gastroesophageal Reflux: Yes - GENITOURINARY/GYNECOLOGICAL Hx Genitourinary Disorders: No - PSYCHIATRIC Hx Psychophysiologic Disorder: No - SURGICAL HISTORY Hx Surgeries: Yes Other/Comment: angioplasty Meds Allergies/Adverse Reactions: Allergies Allergy/AdvReac Type Severity Reaction Status Date / Time pcn Allergy ANAPHYLAXIS Uncoded 11/03/16 18:58 - Medications Medications: Current Medications Aspirin (Aspirin Chewable) 81 mg PO DAILY [facility] Last Admin: 11/04/16 09:48 Dose: 81 mg Atorvastatin Calcium (Lipitor) 40 mg PO HS [facility] Enoxaparin Sodium (Lovenox) 40 mg SC DAILY [facility] PRN Reason: Protocol Last Admin: 11/04/16 09:48 Dose: 40 mg Hydromorphone HCl (Dilaudid) 0.5 mg IVP Q3H PRN PRN Reason: Pain, moderate (4-7) Hydromorphone HCl (Dilaudid) 1 mg IVP Q3H PRN PRN Reason: Pain, severe (8-10) Last Admin: 11/04/16 05:24 Dose: 1 mg Metronidazole (Flagyl) 100 mls @ 100 mls/hr IVPB Q8 [facility] PRN Reason: Protocol Last Admin: 11/04/16 05:24 Dose: 100 mls/hr Sodium Chloride (Sodium Chloride 0.9%) 1,000 mls @ 100 mls/hr IV .Q10H [facility] Last Admin: 11/04/16 00:54 Dose: 100 mls/hr Levofloxacin/Dextrose (Levaquin 750mg) 150 mls @ 100 mls/hr IVPB DAILY [facility] Insulin Human Lispro (Humalog Low) 0 units SC ACHS [facility] PRN Reason: Protocol Last Admin: 11/04/16 08:06 Dose: Not Given Nicotine (Nicoderm Cq) 1 patch TD DAILY [facility] Last Admin: 11/04/16 09:48 Dose: 1 patch Ondansetron HCl (Zofran Inj) 4 mg IVP Q6H PRN PRN Reason: Nausea/Vomiting Last Admin: 11/04/16 07:06 Dose: 4 mg Pantoprazole Sodium (Protonix Ec Tab) 40 mg PO 0630 [facility] Last Admin: 11/04/16 05:31 Dose: Not Given Physical Exam - Constitutional Appears: Non-toxic, No Acute Distress - Eye Exam Eye Exam: EOMI, PERRL - ENT Exam ENT Exam: Mucous Membranes Moist - Respiratory Exam Respiratory Exam: Clear to Auscultation Bilateral. absent: Rales, Rhonchi, Wheezes - Cardiovascular Exam Cardiovascular Exam: RRR, +S1, +S2 - GI/Abdominal Exam GI & Abdominal Exam: Normal Bowel Sounds, Soft, Tenderness (LLQ pain). absent: Distended, Firm, Guarding, Organomegaly, Rigid - Extremities Exam Extremities exam: Positive for: normal inspection. Negative for: pedal edema - Neurological Exam Neurological exam: Alert, Oriented x3 - Psychiatric Exam Psychiatric exam: Normal Affect, Normal Mood - Skin Skin Exam: Dry, Warm Results - Vital Signs Recent Vital Signs: Last Vital Signs Temp 97.7 F 11/04/16 07:11 Pulse 74 11/04/16 07:11 Resp 18 11/04/16 07:11 BP 146/98 H 11/04/16 07:11 Pulse Ox 94 L 11/04/16 07:11 - Labs Result Diagrams: 11/04/16 07:30 11/04/16 07:30 Labs: Laboratory Results - last 24 hr 11/04/16 11/04/16 07:05 07:30 WBC 12.7 H RBC 4.23 Hgb 13.1 L Hct 38.4 L MCV 90.8 MCH 31.0 MCHC 34.1 RDW 13.6 Plt Count 301 MPV 9.5 Gran % 59.3 Lymph % (Auto) 26.2 Early % (Auto) 6.8 H Eos % (Auto) 7.2 H Baso % (Auto) 0.5 Gran # 7.54 H Lymph # 3.3 Early # 0.9 H Eos # 0.9 H Baso # 0.06 Sodium 135 Potassium 3.7 Chloride 100 Carbon Dioxide 29 Anion Gap 10 BUN 11 Creatinine 0.9 Est GFR ( Amer) > 60 Est GFR (Non-Af Amer) > 60 POC Glucose (mg/dL) 103 Random Glucose 101 Calcium 8.7 Total Bilirubin 0.8 AST 17 ALT 23 Alkaline Phosphatase 76 Total Protein 7.0 Albumin 3.6 Globulin 3.4 Albumin/Globulin Ratio 1.1 Triglycerides 133 Cholesterol 137 LDL Cholesterol Direct 74 HDL Cholesterol 27 L Amylase 65 Assessment & Plan - Assessment and Plan (Free Text) Assessment: Patient is a 51 year old male with PMHx significant for CAD s/p PCI who presented to the ED with c/o abdominal pain. -Acute sigmoid diverticulitis -Normocytic anemia -Tobacco use Plan: -CT A/P with IV contrast reviewed -Patient will benefit from 7-10 days of Levaquin/Flagyl therapy -OK to advance diet as tolerated, start with clear liquids -Will need colonoscopy 4-6 weeks following resolution of symptoms -Analgesia per primary service - Date & Time Date: 11/04/16 Time: 10:32 <Porter Merino - Last Filed: 11/04/16 12:08> Meds - Medications Medications: Current Medications Aspirin (Aspirin Chewable) 81 mg PO DAILY [facility] Last Admin: 11/04/16 09:48 Dose: 81 mg Atorvastatin Calcium (Lipitor) 40 mg PO HS [facility] Enoxaparin Sodium (Lovenox) 40 mg SC DAILY [facility] PRN Reason: Protocol Last Admin: 11/04/16 09:48 Dose: 40 mg Hydromorphone HCl (Dilaudid) 0.5 mg IVP Q3H PRN PRN Reason: Pain, moderate (4-7) Hydromorphone HCl (Dilaudid) 1 mg IVP Q3H PRN PRN Reason: Pain, severe (8-10) Last Admin: 11/04/16 05:24 Dose: 1 mg Metronidazole (Flagyl) 100 mls @ 100 mls/hr IVPB Q8 [facility] PRN Reason: Protocol Last Admin: 11/04/16 05:24 Dose: 100 mls/hr Sodium Chloride (Sodium Chloride 0.9%) 1,000 mls @ 100 mls/hr IV .Q10H [facility] Last Admin: 11/04/16 00:54 Dose: 100 mls/hr Levofloxacin/Dextrose (Levaquin 750mg) 150 mls @ 100 mls/hr IVPB DAILY [facility] Insulin Human Lispro (Humalog Low) 0 units SC ACHS [facility] PRN Reason: Protocol Last Admin: 11/04/16 08:06 Dose: Not Given Nicotine (Nicoderm Cq) 1 patch TD DAILY [facility] Last Admin: 11/04/16 09:48 Dose: 1 patch Ondansetron HCl (Zofran Inj) 4 mg IVP Q6H PRN PRN Reason: Nausea/Vomiting Last Admin: 11/04/16 07:06 Dose: 4 mg Pantoprazole Sodium (Protonix Ec Tab) 40 mg PO 0630 [facility] Last Admin: 11/04/16 05:31 Dose: Not Given Results - Vital Signs Recent Vital Signs: Last Vital Signs Temp 97.7 F 11/04/16 07:11 Pulse 74 11/04/16 07:11 Resp 18 11/04/16 07:11 BP 146/98 H 11/04/16 07:11 Pulse Ox 94 L 11/04/16 07:11 - Labs Result Diagrams: 11/04/16 07:30 11/04/16 07:30 Labs: Laboratory Results - last 24 hr 11/04/16 11/04/16 11/04/16 07:05 07:30 11:17 WBC 12.7 H RBC 4.23 Hgb 13.1 L Hct 38.4 L MCV 90.8 MCH 31.0 MCHC 34.1 RDW 13.6 Plt Count 301 MPV 9.5 Gran % 59.3 Lymph % (Auto) 26.2 Early % (Auto) 6.8 H Eos % (Auto) 7.2 H Baso % (Auto) 0.5 Gran # 7.54 H Lymph # 3.3 Early # 0.9 H Eos # 0.9 H Baso # 0.06 Sodium 135 Potassium 3.7 Chloride 100 Carbon Dioxide 29 Anion Gap 10 BUN 11 Creatinine 0.9 Est GFR ( Amer) > 60 Est GFR (Non-Af Amer) > 60 POC Glucose (mg/dL) 103 94 Random Glucose 101 Hemoglobin A1c 6.2 Calcium 8.7 Total Bilirubin 0.8 AST 17 ALT 23 Alkaline Phosphatase 76 Total Protein 7.0 Albumin 3.6 Globulin 3.4 Albumin/Globulin Ratio 1.1 Triglycerides 133 Cholesterol 137 LDL Cholesterol Direct 74 HDL Cholesterol 27 L Amylase 65 Attending/Attestation - Attestation I have personally seen and examined this patient.: Yes I have fully participated in the care of the patient.: Yes I have reviewed all pertinent clinical information: Yes Notes (Text): 11/04/16 12:03 I have seen and examined patient with GI fellow. Agree with above documentation with the following additions. In brief, this is a 51 year old male with history of DM, hyperlipidemia who presents to hospital with complaint of abdominal pain that has become progressively worse over the past one week. He describes a LLQ sharp, 6/10 intensity pain that is non-radiating and not associated with food consumption. Pain initially started following shoveling snow and was thought to be musculoskeletal, however pain got progressively worse and he came to hospital. He describes two episodes of non-bloody diarrhea 2 days ago, but had a normal bowel movement yesterday. He also describes chills but otherwise denies nausea, vomiting, fever, weight loss, rectal bleeding, or change in bowel habits. He had a similar prior episode a few months ago which resolved on its own. No prior endoscopic evaluation. DM Hyperlipidemia Abdominal pain, acute diverticulitis - CT imaging reviewed by me showing sigmoid colon diverticulitis without associated abscess or free air - Clear liquid diet as tolerated - Continue with antibiotic therapy, follow up blood cultures - Pain control - Patient will benefit from elective outpatient colonoscopy following resolution of acute symptoms within 6-8 weeks
--- NOTE | 2016-11-04 10:43 | CARD ---
APPROVED REPORT EKG Measurement Heart [id number] <Conclusion> Normal sinus rhythm NSSTW changes, new
--- NOTE | 2016-11-04 12:39 | CP.PCM.PN ---
<RamezNikolay - Last Filed: 11/04/16 13:40> Subjective - Date & Time of Evaluation Date of Evaluation: 11/04/16 Time of Evaluation: 07:45 - Subjective Subjective: Medicine Progress note. Dr. Oquendo Pt seen and examined at bedside. No acute events overnight. Patient c/o some mild dizziness and he attributes it to not eating since yesterday morning. Does c/o mild chills, no fever. Still c/o pain in the LLQ, 7/10 in severity. No CP/ SOB. Tolerating Clears. Ambulates within room. Objective - Vital Signs/Intake and Output Vital Signs (last 24 hours): Temp Pulse Resp BP Pulse Ox 97.7 F 74 18 146/98 H 94 L 11/04/16 07:11 11/04/16 07:11 11/04/16 07:11 11/04/16 07:11 11/04/16 07:11 Intake and Output: 11/04/16 11/04/16 06:59 18:59 Intake Total 0 Balance 0 - Medications Medications: Current Medications Aspirin (Aspirin Chewable) 81 mg PO DAILY [facility] Last Admin: 11/04/16 09:48 Dose: 81 mg Atorvastatin Calcium (Lipitor) 40 mg PO HS [facility] Enoxaparin Sodium (Lovenox) 40 mg SC DAILY [facility] PRN Reason: Protocol Last Admin: 11/04/16 09:48 Dose: 40 mg Hydromorphone HCl (Dilaudid) 0.5 mg IVP Q3H PRN PRN Reason: Pain, moderate (4-7) Hydromorphone HCl (Dilaudid) 1 mg IVP Q3H PRN PRN Reason: Pain, severe (8-10) Last Admin: 11/04/16 05:24 Dose: 1 mg Metronidazole (Flagyl) 100 mls @ 100 mls/hr IVPB Q8 [facility] PRN Reason: Protocol Last Admin: 11/04/16 05:24 Dose: 100 mls/hr Sodium Chloride (Sodium Chloride 0.9%) 1,000 mls @ 100 mls/hr IV .Q10H [facility] Last Admin: 11/04/16 00:54 Dose: 100 mls/hr Levofloxacin/Dextrose (Levaquin 750mg) 150 mls @ 100 mls/hr IVPB DAILY [facility] Insulin Human Lispro (Humalog Low) 0 units SC ACHS [facility] PRN Reason: Protocol Last Admin: 11/04/16 12:14 Dose: Not Given Nicotine (Nicoderm Cq) 1 patch TD DAILY [facility] Last Admin: 11/04/16 09:48 Dose: 1 patch Ondansetron HCl (Zofran Inj) 4 mg IVP Q6H PRN PRN Reason: Nausea/Vomiting Last Admin: 11/04/16 07:06 Dose: 4 mg Pantoprazole Sodium (Protonix Ec Tab) 40 mg PO 0630 [facility] Last Admin: 11/04/16 05:31 Dose: Not Given - Labs Labs: 11/04/16 07:30 11/04/16 07:30 - Constitutional Appears: Well, No Acute Distress - Head Exam Head Exam: ATRAUMATIC, NORMAL INSPECTION, NORMOCEPHALIC - Eye Exam Eye Exam: EOMI, Normal appearance, PERRL. absent: Scleral icterus Pupil Exam: PERRL - ENT Exam ENT Exam: Mucous Membranes Moist, Normal Exam - Neck Exam Neck Exam: Full ROM, Normal Inspection - Respiratory Exam Respiratory Exam: Clear to Ausculation Bilateral, NORMAL BREATHING PATTERN. absent: Wheezes - Cardiovascular Exam Cardiovascular Exam: REGULAR RHYTHM, RRR, +S1, +S2. absent: JVD - GI/Abdominal Exam GI & Abdominal Exam: Soft, Tenderness (LLQ moderately tender to palpation) - Extremities Exam Extremities Exam: Full ROM, Normal Inspection - Neurological Exam Neurological Exam: Alert, Awake, Oriented x3 - Psychiatric Exam Psychiatric exam: Normal Affect, Normal Mood - Skin Skin Exam: Dry, Intact, Normal Color, Warm Assessment and Plan - Assessment and Plan (Free Text) Assessment: 51yo M with PMHx of DM, and CAD here for evaluation of left lower quadrant abdominal pain. 1. Acute Sigmoid Diverticulitis Tmax 99.[address] Abd - Acute Sigmoid diverticulitis. No abscess, no free air. Continue IVF Flagyl 500mg IV q8 Levaquin 750mg Daily Pain control Clear liquids. ADAT Zofran prn 2. Hx of CAD Continue ASA and lipitor Lipids wnl. HDL 27L 3. Hx of DM Insulin SS Hold home metformin HbA1c - 6.2 4. Tobacco abuse Cessation counseling had Nicotine patch 5. 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 PPx Protonix 40mg PO Daily Lovenox 40mg SC Daily Discussed case with Dr. Azra Myrick PGY1 <Bertha Oquendo - Last Filed: 11/04/16 15:29> Objective - Vital Signs/Intake and Output Vital Signs (last 24 hours): Temp Pulse Resp BP Pulse Ox 97.7 F 74 18 146/98 H 94 L 11/04/16 07:11 11/04/16 07:11 11/04/16 07:11 11/04/16 07:11 11/04/16 07:11 Intake and Output: 11/04/16 11/04/16 06:59 18:59 Intake Total 0 600 Balance 0 600 - Medications Medications: Current Medications Aspirin (Aspirin Chewable) 81 mg PO DAILY [facility] Last Admin: 11/04/16 09:48 Dose: 81 mg Atorvastatin Calcium (Lipitor) 40 mg PO HS [facility] Enoxaparin Sodium (Lovenox) 40 mg SC DAILY [facility] PRN Reason: Protocol Last Admin: 11/04/16 09:48 Dose: 40 mg Hydromorphone HCl (Dilaudid) 0.5 mg IVP Q3H PRN PRN Reason: Pain, moderate (4-7) Hydromorphone HCl (Dilaudid) 1 mg IVP Q3H PRN PRN Reason: Pain, severe (8-10) Last Admin: 11/04/16 05:24 Dose: 1 mg Metronidazole (Flagyl) 100 mls @ 100 mls/hr IVPB Q8 [facility] PRN Reason: Protocol Last Admin: 11/04/16 05:24 Dose: 100 mls/hr Sodium Chloride (Sodium Chloride 0.9%) 1,000 mls @ 100 mls/hr IV .Q10H [facility] Last Admin: 11/04/16 00:54 Dose: 100 mls/hr Levofloxacin/Dextrose (Levaquin 750mg) 150 mls @ 100 mls/hr IVPB DAILY [facility] Insulin Human Lispro (Humalog Low) 0 units SC ACHS [facility] PRN Reason: Protocol Last Admin: 11/04/16 12:14 Dose: Not Given Nicotine (Nicoderm Cq) 1 patch TD DAILY [facility] Last Admin: 11/04/16 09:48 Dose: 1 patch Ondansetron HCl (Zofran Inj) 4 mg IVP Q6H PRN PRN Reason: Nausea/Vomiting Last Admin: 11/04/16 07:06 Dose: 4 mg Pantoprazole Sodium (Protonix Ec Tab) 40 mg PO 0630 [facility] Last Admin: 11/04/16 05:31 Dose: Not Given - Labs Labs: 11/04/16 07:30 11/04/16 07:30 Attending/Attestation - Attestation I have personally seen and examined this patient.: Yes I have fully participated in the care of the patient.: Yes I have reviewed all pertinent clinical information, including history, physical exam and plan: Yes Notes (Text): 11/04/16 15:25 51 year old male with past medical history of CAD and diabetes who presented with complaint of LLQ abdominal pain. CT abd/pelvis showed acute sigmoid diverticulitis. Continue with iv fluids, antibiotics and analgesics. GI evaluation was appreciated. Diet was advanced to liquid diet this morning. Continue with aspirin and statin for history of CAD. He is on insulin ss for diabetes. He was couselled on smoking abstinence. CT abd/pelvis also showed incidental 3.5 cm myelolipoma of right adrenal. Recommended outpatient follow up with serial imaging. Bertha Oquendo MD Hospitalist.
[2016-11-05] MEDS: Pantoprazole 40 mg EC Tab PO SCH (05:52)
[2016-11-05] MEDS: metroNIDAZOLE IV 500 mg/100 ml 100 ML IVPB SCH (05:52)
[2016-11-05] MEDS: Sodium Chloride 0.9% 1,000 ML IV SCH (05:53)
--- NOTE | 2016-11-05 07:32 | CP.PCM.PN ---
<Peg Cary - Last Filed: 11/05/16 09:54> Subjective - Date & Time of Evaluation Date of Evaluation: 11/05/16 Time of Evaluation: 07:28 - Subjective Subjective: Gastroenterology Fellow/PGY4 Progress Note Patient sitting on side of bed. Admits to improvement in abdominal discomfort with pain medicine overnight. Left lower abdominal pain is greatly improved, pain scale 1-2/10. Tolerated full liquid diet. No bowel movement yesterday. A 12 -point review of systems negative except for as above. Objective - Vital Signs/Intake and Output Vital Signs (last 24 hours): Temp Pulse Resp BP Pulse Ox 97.7 F 74 18 146/98 H 94 L 11/04/16 07:11 11/04/16 07:11 11/04/16 07:11 11/04/16 07:11 11/04/16 07:11 - Medications Medications: Current Medications Aspirin (Aspirin Chewable) [address] [facility] Last Admin: 11/04/16 09:48 Dose: 81 mg Atorvastatin Calcium (Lipitor) [address] [facility] Last Admin: 11/04/16 22:05 Dose: 40 mg Enoxaparin Sodium (Lovenox) [address] [facility] PRN Reason: Protocol Last Admin: 11/04/16 09:48 Dose: 40 mg Hydromorphone HCl (Dilaudid) 0.5 mg IVP Q3H PRN PRN Reason: Pain, moderate (4-7) Hydromorphone HCl (Dilaudid) 1 mg IVP Q3H PRN PRN Reason: Pain, severe (8-10) Last Admin: 11/04/16 21:06 Dose: 1 mg Metronidazole (Flagyl) 100 mls @ 100 mls/hr IVPB Q8 [facility] PRN Reason: Protocol Last Admin: 11/05/16 05:52 Dose: 100 mls/hr Sodium Chloride (Sodium Chloride 0.9%) 1,000 mls @ 100 mls/hr IV .Q10H [facility] Last Admin: 11/05/16 05:53 Dose: 100 mls/hr Levofloxacin/Dextrose (Levaquin 750mg) 150 mls @ 100 mls/hr IVPB DAILY [facility] Insulin Human Lispro (Humalog Low) [address] [facility] PRN Reason: Protocol Last Admin: 11/04/16 21:42 Dose: Not Given Nicotine (Nicoderm Cq) [address] [facility] Last Admin: 11/04/16 09:48 Dose: 1 patch Ondansetron HCl (Zofran Inj) 4 mg IVP Q6H PRN PRN Reason: Nausea/Vomiting Last Admin: 11/04/16 07:06 Dose: 4 mg Pantoprazole Sodium (Protonix Ec Tab) [address] [facility] Last Admin: 11/05/16 05:52 Dose: 40 mg - Labs Labs: 11/04/16 07:30 11/04/16 07:30 - Constitutional Appears: Non-toxic, No Acute Distress - Head Exam Head Exam: ATRAUMATIC, NORMOCEPHALIC - Eye Exam Eye Exam: EOMI, PERRL Pupil Exam: PERRL. absent: Miosis, Mydriatic - ENT Exam ENT Exam: Mucous Membranes Moist, Normal Oropharynx - Neck Exam Neck Exam: Full ROM, Normal Inspection - Respiratory Exam Respiratory Exam: Clear to Ausculation Bilateral. absent: Rales, Rhonchi, Wheezes - Cardiovascular Exam Cardiovascular Exam: RRR, +S1, +S2. absent: Gallop, Rubs - GI/Abdominal Exam GI & Abdominal Exam: Soft, Tenderness, Normal Bowel Sounds. absent: Distended, Firm, Guarding, Rigid, Organomegaly, Rebound Additional comments: mild LLQ tenderness to palpation - Extremities Exam Extremities Exam: Full ROM. absent: Pedal Edema - Neurological Exam Neurological Exam: Alert, Awake - Psychiatric Exam Psychiatric exam: Normal Affect, Normal Mood - Skin Skin Exam: Dry, Intact, Normal Color, Warm Assessment and Plan - Assessment and Plan (Free Text) Assessment: 51 year old male with history of CAD s/p PCI, Diabetes, and Hyperlipidemia presenting with abdominal pain. CT A/P IV contrast showing colonic diverticulosis with sigmoid diverticulitis. Acute sigmoid diverticulitis Plan: >continue Levofloxacin and Flagyl, total 10 days >supportive care: pain control >tolerated full liquids diet, advanced to regular diet >will benefit from colonoscopy after resolution of diverticulitis in 6-8 weeks <Elsie Schulte MD - Last Filed: 11/05/16 11:40> Objective - Vital Signs/Intake and Output Vital Signs (last 24 hours): Temp Pulse Resp BP Pulse Ox 98.0 F 78 19 160/108 H 98 11/05/16 06:00 11/05/16 06:00 11/05/16 06:00 11/05/16 06:00 11/05/16 06:00 - Medications Medications: Current Medications Aspirin (Aspirin Chewable) [address] [facility] Last Admin: 11/04/16 09:48 Dose: 81 mg Atorvastatin Calcium (Lipitor) [address] [facility] Last Admin: 11/04/16 22:05 Dose: 40 mg Enoxaparin Sodium (Lovenox) [address] [facility] PRN Reason: Protocol Last Admin: 11/04/16 09:48 Dose: 40 mg Hydromorphone HCl (Dilaudid) 0.5 mg IVP Q3H PRN PRN Reason: Pain, moderate (4-7) Hydromorphone HCl (Dilaudid) 1 mg IVP Q3H PRN PRN Reason: Pain, severe (8-10) Last Admin: 11/04/16 21:06 Dose: 1 mg Metronidazole (Flagyl) 100 mls @ 100 mls/hr IVPB Q8 [facility] PRN Reason: Protocol Last Admin: 11/05/16 05:52 Dose: 100 mls/hr Sodium Chloride (Sodium Chloride 0.9%) 1,000 mls @ 100 mls/hr IV .Q10H [facility] Last Admin: 11/05/16 05:53 Dose: 100 mls/hr Levofloxacin/Dextrose (Levaquin 750mg) 150 mls @ 100 mls/hr IVPB DAILY [facility] Insulin Human Lispro (Humalog Low) [address] [facility] PRN Reason: Protocol Last Admin: 11/05/16 08:08 Dose: Not Given Nicotine (Nicoderm Cq) [address] [facility] Last Admin: 11/04/16 09:48 Dose: 1 patch Ondansetron HCl (Zofran Inj) 4 mg IVP Q6H PRN PRN Reason: Nausea/Vomiting Last Admin: 11/04/16 07:06 Dose: 4 mg Pantoprazole Sodium (Protonix Ec Tab) [address] [facility] Last Admin: 11/05/16 05:52 Dose: 40 mg - Labs Labs: 11/05/16 08:00 11/05/16 08:00 Attending/Attestation - Attestation I have personally seen and examined this patient.: Yes I have fully participated in the care of the patient.: Yes I have reviewed all pertinent clinical information, including history, physical exam and plan: Yes Notes (Text): 11/05/16 11:38 Patient seen and examined with GI fellow on rounds. This is a 51 year old male with history of CAD s/p PCI, Diabetes, and Hyperlipidemia presenting with abdominal pain in setting of acute non complicated diverticulitis which is resolving. Tolerating advance diet without pain, nausea, vomiting. Will complete 10 day course of levofloxacin and metronidazole and follow with GI in 4 -6 weeks for outpatient colonoscopy. Discussed with team regarding cleared for discharge
[2016-11-05] MEDS: Insulin Lispro (humaLOG) LOW Coverage SC SCH (08:08)
[2016-11-05 08:16] LABS: ADD MANUAL DIFF? NO
[2016-11-05 08:18] LABS: BASO # 0.08 K/mm3 (0.0-2.0); EOS # 0.8 (0.0-0.7); EOS % 9.9 % (1.5-5.0); GRAN # 3.95 (1.4-6.5); GRAN % 49.9 % (50.0-68.0); HEMATOCRIT 40.5 % (42.0-52.0); LYMPH # 2.5 (1.2-3.4); LYMPH % 31.5 % (22.0-35.0); MEAN CELL VOLUME 90.6 fL (80.0-105.0); MEAN CORPUSCULAR HEMOGLOBIN 30.6 pg (25.0-35.0); MEAN CORPUSCULAR HGB CONC 33.8 g/dl (31.0-37.0); MEAN PLATELET VOLUME 9.6 fl (7.0-11.0); MONO # 0.6 (0.1-0.6); MONO % 7.7 % (1.0-6.0); PLATELET COUNT 333 10^3/uL (120.0-450.0); RED CELL DISTRIBUTION WIDTH 13.5 % (11.5-14.5); WHITE BLOOD COUNT 7.9 10^3/ul (4.5-11.0)
[2016-11-05 08:29] LABS: ALB/GLOB RATIO 1.2 (1.1-1.8); ALKALINE PHOSPHATASE 81 U/L (38-133); ALT/SGPT 24 U/L (7-56); AST/SGOT 28 U/L (15-59); BILIRUBIN,TOTAL 0.7 mg/dL (0.2-1.3); BLOOD UREA NITROGEN 10 mg/dL (7-21); CALCIUM 9.6 mg/dL (8.4-10.5); CARBON DIOXIDE 32 mmol/L (21-33); CHLORIDE 99 mmol/L (95-110); GFR AFRICAN-AMERICAN > 60; GLUCOSE,RANDOM 93 mg/dL (70-110); SODIUM 140 mmol/L (132-148); TOTAL PROTEIN 7.7 g/dL (5.8-8.3)
[2016-11-05 09:55] VITALS: BP 160/108; PULSE 78; RESP 19; TEMP 98; O2SAT 98
--- NOTE | 2016-11-05 10:36 | CP.PCM.DIS ---
Provider - Provider Date of Admission: 11/03/16 23:40 Attending physician: Bertha Oquendo MD Primary care physician: Gamal Mathis MD Consults: GI: Dr. Schulte Time Spent in preparation of Discharge (in minutes): 40 Hospital Course - Lab Results Lab Results: Most Recent Lab Values WBC 7.9 10^3/ul (4.5-11.0) D 11/05/16 08:00 RBC 4.47 10^6/uL (3.5-6.1) 11/05/16 08:00 Hgb 13.7 gm/dL (14.0-18.0) L 11/05/16 08:00 Hct 40.5 % (42.0-52.0) L 11/05/16 08:00 MCV 90.6 fL (80.0-105.0) 11/05/16 08:00 MCH 30.6 pg (25.0-35.0) 11/05/16 08:00 MCHC 33.8 g/dl (31.0-37.0) 11/05/16 08:00 RDW 13.5 % (11.5-14.5) 11/05/16 08:00 Plt Count 333 10^3/uL (120.0-450.0) 11/05/16 08:00 MPV 9.6 fl (7.0-11.0) 11/05/16 08:00 Gran % 49.9 % (50.0-68.0) L 11/05/16 08:00 Lymph % (Auto) 31.5 % (22.0-35.0) 11/05/16 08:00 [place] % (Auto) 7.7 % (1.0-6.0) H 11/05/16 08:00 Eos % (Auto) 9.9 % (1.5-5.0) H 11/05/16 08:00 Baso % (Auto) 1.0 % (0.0-3.0) 11/05/16 08:00 Gran # 3.95 (1.4-6.5) 11/05/16 08:00 Lymph # 2.5 (1.2-3.4) 11/05/16 08:00 [place] # 0.6 (0.1-0.6) 11/05/16 08:00 Eos # 0.8 (0.0-0.7) H 11/05/16 08:00 Baso # 0.08 K/mm3 (0.0-2.0) 11/05/16 08:00 pO2 37 mm/Hg (30-55) 11/03/16 21:05 VBG pH 7.36 (7.32-7.43) 11/03/16 21:05 VBG pCO2 52.0 (40-60) 11/03/16 21:05 VBG HCO3 29.4 mmol/l (21-28) H 11/03/16 21:05 VBG Total CO2 31.0 mmol.L (22-28) H 11/03/16 21:05 VBG O2 Sat (Calc) 75.6 % (40-65) H 11/03/16 21:05 VBG Base Excess 2.8 mmol/L (0.0-2.0) H 11/03/16 21:05 VBG Potassium 4.1 mmol/L (3.6-5.2) 11/03/16 21:05 Sodium 133.0 mmol/L (132-148) 11/03/16 21:05 Chloride 103.0 mmol/L (98-107) 11/03/16 21:05 Glucose 87 mg/dl (75-110) 11/03/16 21:05 Lactate 0.7 mmol/L (0.7-2.1) 11/03/16 21:05 FiO2 21.0 % 11/03/16 21:05 Sodium 140 mmol/L (132-148) 11/05/16 08:00 Potassium 4.0 mmol/L (3.6-5.0) 11/05/16 08:00 Chloride 99 mmol/L (95-110) 11/05/16 08:00 Carbon Dioxide 32 mmol/L (21-33) 11/05/16 08:00 Anion Gap 13 (10-20) 11/05/16 08:00 BUN 10 mg/dL (7-21) 11/05/16 08:00 Creatinine 0.9 mg/dL (0.5-1.4) 11/05/16 08:00 Est GFR ( Amer) > 60 11/05/16 08:00 Est GFR (Non-Af Amer) > 60 11/05/16 08:00 POC Glucose (mg/dL) 79 mg/dL (65-110) 11/05/16 07:53 Random Glucose 93 mg/dL (70-110) 11/05/16 08:00 Hemoglobin A1c 6.2 % (4.2-6.5) 11/04/16 07:30 Calcium 9.6 mg/dL (8.4-10.5) 11/05/16 08:00 Total Bilirubin 0.7 mg/dL (0.2-1.3) 11/05/16 08:00 AST 28 U/L (15-59) 11/05/16 08:00 ALT 24 U/L (7-56) 11/05/16 08:00 Alkaline Phosphatase 81 U/L (38-133) 11/05/16 08:00 Total Protein 7.7 g/dL (5.8-8.3) 11/05/16 08:00 Albumin 4.2 g/dL (3.0-4.8) 11/05/16 08:00 Globulin 3.6 gm/dL 11/05/16 08:00 Albumin/Globulin Ratio 1.2 (1.1-1.8) 11/05/16 08:00 Triglycerides 133 mg/dL (35-160) 11/04/16 07:30 Cholesterol 137 mg/dL (130-200) 11/04/16 07:30 LDL Cholesterol Direct 74 mg/dL (0-129) 11/04/16 07:30 HDL Cholesterol 27 mg/dL (29-60) L 11/04/16 07:30 Amylase 65 U/L (35-125) 11/04/16 07:30 Lipase 47 U/L (23-300) 11/03/16 19:35 Venous Blood Potassium 4.1 mmol/L (3.6-5.2) 11/03/16 21:05 Urine Color Yellow (YELLOW) 11/03/16 19:54 Urine Appearance Clear (CLEAR) 11/03/16 19:54 Urine pH 6.0 (4.7-8.0) 11/03/16 19:54 Ur Specific [place] >= 1.030 (1.005-1.035) 11/03/16 19:54 Urine Protein 100 mg/dL (<30 mg/dL) H 03/16/17 19:54 Urine Glucose (UA) Negative mg/dL (NEGATIVE) 11/03/16 19:54 Urine Ketones Negative mg/dL (NEGATIVE) 11/03/16 19:54 Urine Blood Trace-intact (NEGATIVE) H 11/03/16 19:54 Urine Nitrate Negative (NEGATIVE) 11/03/16 19:54 Urine Bilirubin Negative (NEGATIVE) 11/03/16 19:54 Urine Urobilinogen 0.2 E.U./dL (<1 E.U./dL) 11/03/16 19:54 Ur Leukocyte Esterase Negative Juan/uL (NEGATIVE) 11/03/16 19:54 Urine RBC 2 - 5 /hpf (0-2) 11/03/16 19:54 Urine WBC 0 - 2 /hpf (0-6) 11/03/16 19:54 Ur Epithelial Cells 0 - 2 /hpf (0-5) 11/03/16 19:54 Urine Bacteria Mod (NEG) 11/03/16 19:54 Discharge Exam - Head Exam Head Exam: ATRAUMATIC, NORMOCEPHALIC Discharge Plan - Discharge Medications Prescriptions: metroNIDAZOLE [Flagyl] 500 mg PO TID #24 tab levoFLOXacin [Levaquin] 500 mg PO DAILY #8 tab - Follow Up Plan Condition: STABLE Disposition: HOME/ ROUTINE Instructions: Diverticulitis (DC) Additional Instructions: -Patient was instructed to follow up with PMD and GI after discharged from hospital -Patient will schedule colonoscopy with GI doctor 2 months from now -Patient will take medications as prescribed -Go to the nearest ED if symptoms return or worsen Referrals: Gamal Mathis MD [Primary Care Provider] -
--- NOTE | 2016-11-05 14:48 | CP.PCM.DIS ---
Provider - Provider Date of Admission: 11/03/16 23:40 Attending physician: Bertha Oquendo MD Primary care physician: Gamal Mathis MD Time Spent in preparation of Discharge (in minutes): 35 Hospital Course - Lab Results Lab Results: Most Recent Lab Values WBC 7.9 10^3/ul (4.5-11.0) D 11/05/16 08:00 RBC 4.47 10^6/uL (3.5-6.1) 11/05/16 08:00 Hgb 13.7 gm/dL (14.0-18.0) L 11/05/16 08:00 Hct 40.5 % (42.0-52.0) L 11/05/16 08:00 MCV 90.6 fL (80.0-105.0) 11/05/16 08:00 MCH 30.6 pg (25.0-35.0) 11/05/16 08:00 MCHC 33.8 g/dl (31.0-37.0) 11/05/16 08:00 RDW 13.5 % (11.5-14.5) 11/05/16 08:00 Plt Count 333 10^3/uL (120.0-450.0) 11/05/16 08:00 MPV 9.6 fl (7.0-11.0) 11/05/16 08:00 Gran % 49.9 % (50.0-68.0) L 11/05/16 08:00 Lymph % (Auto) 31.5 % (22.0-35.0) 11/05/16 08:00 [place] % (Auto) 7.7 % (1.0-6.0) H 11/05/16 08:00 Eos % (Auto) 9.9 % (1.5-5.0) H 11/05/16 08:00 Baso % (Auto) 1.0 % (0.0-3.0) 11/05/16 08:00 Gran # 3.95 (1.4-6.5) 11/05/16 08:00 Lymph # 2.5 (1.2-3.4) 11/05/16 08:00 [place] # 0.6 (0.1-0.6) 11/05/16 08:00 Eos # 0.8 (0.0-0.7) H 11/05/16 08:00 Baso # 0.08 K/mm3 (0.0-2.0) 11/05/16 08:00 pO2 37 mm/Hg (30-55) 11/03/16 21:05 VBG pH 7.36 (7.32-7.43) 11/03/16 21:05 VBG pCO2 52.0 (40-60) 11/03/16 21:05 VBG HCO3 29.4 mmol/l (21-28) H 11/03/16 21:05 VBG Total CO2 31.0 mmol.L (22-28) H 11/03/16 21:05 VBG O2 Sat (Calc) 75.6 % (40-65) H 11/03/16 21:05 VBG Base Excess 2.8 mmol/L (0.0-2.0) H 11/03/16 21:05 VBG Potassium 4.1 mmol/L (3.6-5.2) 11/03/16 21:05 Sodium 133.0 mmol/L (132-148) 11/03/16 21:05 Chloride 103.0 mmol/L (98-107) 11/03/16 21:05 Glucose 87 mg/dl (75-110) 11/03/16 21:05 Lactate 0.7 mmol/L (0.7-2.1) 11/03/16 21:05 FiO2 21.0 % 11/03/16 21:05 Sodium 140 mmol/L (132-148) 11/05/16 08:00 Potassium 4.0 mmol/L (3.6-5.0) 11/05/16 08:00 Chloride 99 mmol/L (95-110) 11/05/16 08:00 Carbon Dioxide 32 mmol/L (21-33) 11/05/16 08:00 Anion Gap 13 (10-20) 11/05/16 08:00 BUN 10 mg/dL (7-21) 11/05/16 08:00 Creatinine 0.9 mg/dL (0.5-1.4) 11/05/16 08:00 Est GFR ( Amer) > 60 11/05/16 08:00 Est GFR (Non-Af Amer) > 60 11/05/16 08:00 POC Glucose (mg/dL) 79 mg/dL (65-110) 11/05/16 07:53 Random Glucose 93 mg/dL (70-110) 11/05/16 08:00 Hemoglobin A1c 6.2 % (4.2-6.5) 11/04/16 07:30 Calcium 9.6 mg/dL (8.4-10.5) 11/05/16 08:00 Total Bilirubin 0.7 mg/dL (0.2-1.3) 11/05/16 08:00 AST 28 U/L (15-59) 11/05/16 08:00 ALT 24 U/L (7-56) 11/05/16 08:00 Alkaline Phosphatase 81 U/L (38-133) 11/05/16 08:00 Total Protein 7.7 g/dL (5.8-8.3) 11/05/16 08:00 Albumin 4.2 g/dL (3.0-4.8) 11/05/16 08:00 Globulin 3.6 gm/dL 11/05/16 08:00 Albumin/Globulin Ratio 1.2 (1.1-1.8) 11/05/16 08:00 Triglycerides 133 mg/dL (35-160) 11/04/16 07:30 Cholesterol 137 mg/dL (130-200) 11/04/16 07:30 LDL Cholesterol Direct 74 mg/dL (0-129) 11/04/16 07:30 HDL Cholesterol 27 mg/dL (29-60) L 11/04/16 07:30 Amylase 65 U/L (35-125) 11/04/16 07:30 Lipase 47 U/L (23-300) 11/03/16 19:35 Venous Blood Potassium 4.1 mmol/L (3.6-5.2) 11/03/16 21:05 Urine Color Yellow (YELLOW) 11/03/16 19:54 Urine Appearance Clear (CLEAR) 11/03/16 19:54 Urine pH 6.0 (4.7-8.0) 11/03/16 19:54 Ur Specific [place] >= 1.030 (1.005-1.035) 11/03/16 19:54 Urine Protein 100 mg/dL (<30 mg/dL) H 11/03/16 19:54 Urine Glucose (UA) Negative mg/dL (NEGATIVE) 11/03/16 19:54 Urine Ketones Negative mg/dL (NEGATIVE) 11/03/16 19:54 Urine Blood Trace-intact (NEGATIVE) H 11/03/16 19:54 Urine Nitrate Negative (NEGATIVE) 11/03/16 19:54 Urine Bilirubin Negative (NEGATIVE) 11/03/16 19:54 Urine Urobilinogen 0.2 E.U./dL (<1 E.U./dL) 11/03/16 19:54 Ur Leukocyte Esterase Negative Juan/uL (NEGATIVE) 11/03/16 19:54 Urine RBC 2 - 5 /hpf (0-2) 11/03/16 19:54 Urine WBC 0 - 2 /hpf (0-6) 11/03/16 19:54 Ur Epithelial Cells 0 - 2 /hpf (0-5) 11/03/16 19:54 Urine Bacteria Mod (NEG) 11/03/16 19:54 - Hospital Course Hospital Course: This is a 51 year old male with past medical history of CAD and diabetes who presented with complaint of LLQ abdominal pain. He was found to have acute sigmoid diverticulitis on CT scan. He was NPO and started on iv fluids, antibiotics and analgesics. He was seen and evaluated by GI. His symptoms improved and his diet was advanced to liquids to regular diet which he tolerated. CT abd/pelvis also showed incidental 3.5 cm myelolipoma of right adrenal. Recommended outpatient follow up with serial imaging. He is discharged home to follow up with his pmd. Recommended follow up with GI for elective colonoscopy in 6-8 weeks. Continue with po antibiotics as prescribed. Continue with home medications; resume metformin tomorrow. Counselled on smoking cessation. Discharge Diagnoses: 1) acute diverticulitis 2) CAD 3) hypertension 4) diabetes total discharge time : 35 mins Discharge Exam - Head Exam Head Exam: ATRAUMATIC, NORMOCEPHALIC - Eye Exam Eye Exam: EOMI - ENT Exam ENT Exam: Normal Exam - Neck Exam Neck exam: Full Rom - Respiratory Exam Respiratory Exam: Clear to PA & Lateral. absent: Rhonchi, Wheezes - Cardiovascular Exam Cardiovascular Exam: REGULAR RHYTHM, +S1, +S2 - GI/Abdominal Exam GI & Abdominal Exam: Normal Bowel Sounds, Soft. absent: Organomegaly, Tenderness - Extremities Exam Extremities exam: normal inspection - Neurological Exam Neurological exam: Alert, Oriented x3 - Psychiatric Exam Psychiatric exam: Normal Affect, Normal Mood Discharge Plan - Discharge Medications Prescriptions: metroNIDAZOLE [Flagyl] 500 mg PO TID #24 tab levoFLOXacin [Levaquin] 500 mg PO DAILY #8 tab oxyCODONE/Acetaminophen [Percocet 5/325 mg Tab] 1 ea PO Q6H PRN #12 tab PRN Reason: Pain, Moderate (4-7) - Follow Up Plan Condition: STABLE Disposition: HOME/ ROUTINE Patient education suggested?: Yes Instructions: Diverticulitis (DC) Additional Instructions: -Patient was instructed to follow up with PMD and GI after discharged from hospital -Patient will schedule colonoscopy with GI doctor 2 months from now -Patient will take medications as prescribed -Go to the nearest ED if symptoms return or worsen Referrals: Gamal Mathis MD [Primary Care Provider] -
== END 2016-11-05 12:32 | disposition home or self-care (01) | DRG 551 ==
LOC: ED 18:24 → EROBSV 19:00 → OBSVTOIN 23:40 → ERH 11-04 00:03 → 3RSO 11-04 01:21
PROVIDERS: ADMIT Hospitalist; ATTEND Internal Medicine
DX: K57.32 Diverticulitis of large intestine without perforation or abscess without bleeding (principal); J18.9 Pneumonia, unspecified organism; J90 Pleural effusion, not elsewhere classified; I31.3 Pericardial effusion (noninflammatory); R65.10 Systemic inflammatory response syndrome (SIRS) of non-infectious origin without acute organ dysfunction; K76.0 Fatty (change of) liver, not elsewhere classified; I10 Essential (primary) hypertension; E11.9 Type 2 diabetes mellitus without complications; D64.9 Anemia, unspecified; E78.5 Hyperlipidemia, unspecified; E66.9 Obesity, unspecified; F17.200 Nicotine dependence, unspecified, uncomplicated; I25.10 Atherosclerotic heart disease of native coronary artery without angina pectoris; I73.9 Peripheral vascular disease, unspecified; K21.9 Gastro-esophageal reflux disease without esophagitis; D17.79 Benign lipomatous neoplasm of other sites; Y93.H1 Activity, digging, shoveling and raking; Z83.3 Family history of diabetes mellitus; Z87.01 Personal history of pneumonia (recurrent); Z88.0 Allergy status to penicillin; Z98.61 Coronary angioplasty status; Z87.892 Personal history of anaphylaxis; R40.2412 Glasgow coma scale score 13-15, at arrival to emergency department; F12.90 Cannabis use, unspecified, uncomplicated

== ENCOUNTER 2017-02-20 06:09 | Day surgery (SDC) | payer OTHER ==
[2017-02-13 10:31] VITALS: BMI 35.2
[2017-02-20] MEDS ORDERED: Lidocaine 2% Inj (20ml) ONE (06:43)
[2017-02-20] MEDS ORDERED: Iohexol 350 MG/100 ML VIAL ONE ×2 (06:44→08:33)
[2017-02-20] MEDS ORDERED: Iohexol 350mgl/ml 50 ML ONE (06:44)
[2017-02-20 06:56] LABS: BLOOD UREA NITROGEN 14 mg/dL (7-21); CALCIUM 9.4 mg/dL (8.4-10.5); GFR AFRICAN-AMERICAN > 60; GFR NON-AFRICAN AMERICAN > 60
[2017-02-20 07:05] LABS: BASO # 0.06 K/mm3 (0.0-2.0); BASO % 0.7 % (0.0-3.0); EOS # 0.4 (0.0-0.7); EOS % 4.6 % (1.5-5.0); GRAN # 4.73 (1.4-6.5); GRAN % 51.6 % (50.0-68.0); HEMOGLOBIN 14.6 gm/dL (14.0-18.0); LYMPH # 3.3 (1.2-3.4); MEAN CELL VOLUME 91.4 fL (80.0-105.0); MEAN CORPUSCULAR HEMOGLOBIN 30.6 pg (25.0-35.0); MEAN CORPUSCULAR HGB CONC 33.5 g/dl (31.0-37.0); MEAN PLATELET VOLUME 9.6 fl (7.0-11.0); MONO # 0.7 (0.1-0.6); MONO % 7.1 % (1.0-6.0); PLATELET COUNT 361 10^3/uL (120.0-450.0); RBC 4.77 10^6/uL (3.5-6.1); RED CELL DISTRIBUTION WIDTH 13.4 % (11.5-14.5); WHITE BLOOD COUNT 9.2 10^3/ul (4.5-11.0)
[2017-02-20 07:08] LABS: INR 0.99 (0.93-1.08); PARTIAL THROMBOPLASTIN TIME 28.6 Seconds (23.7-30.8); PROTHROMBIN TIME 10.7 Seconds (9.9-11.8)
[2017-02-20] MEDS ORDERED: Midazolam 2 MG/2 ML VIAL ONE ×2 (08:14→08:29)
[2017-02-20 09:15] VITALS: TEMP 97.8
[2017-02-20] MEDS ORDERED: Sodium Chloride 0.9% 1,000 ML IV SCH (09:15)
--- NOTE | 2017-02-20 09:39 | CARD ---
APPROVED REPORT EKG Measurement Heart [id number] <Conclusion> Normal sinus rhythm NSSTW changes No change
[2017-02-20 10:53] VITALS: O2SAT 98
[2017-02-20 11:18] VITALS: RESP 18
[2017-02-20 12:20] VITALS: PULSE 70
[2017-02-20 12:47] VITALS: BP 140/95
--- NOTE | 2017-03-01 14:17 | PCM.OP ---
Operative Report - Operative Report Date of Surgery/Procedure: 02/20/17 Time of Surgery/Procedure: 08:38 Surgeon: Oral Hernandez Anesthesia/Sedation: None Pre-Operative Diagnosis: Cardiac Catheterization Post-Operative Diagnosis: In summary, the procedure revealed a mild cardiomyopathy with an EF of 40 to 45 percent. His coronary anatomy was free of significant disease. Indication for Surgery: 51 year old male who presented with an abnormal stress test period. He suffers from diabetes mellitus and hypercholesterolemia. He complains of intermittent chest pain and continues to smoke. He is found to have a cardiomyopathy on stress test. Operative Findings: The finding of catheterization revealed a left ventricle that was mildly dilated and diffusely hypokinetic. Estimated ejection fraction is 60%. With coronary anatomy revealed a left dominant circulation. Right coronary artery is slightly canalized, is found to have a 30 to 40 percent stenosis in the midportion. The left main artery is unremarkable. The LED and diagonal vessels reveal mild and similar regularities without significant stenosis. Circumflex artery was a large vessel and revealed mild intimal irregularities but was free of significant disease. Procedure/Operation Description: Catheterization with Cardiotocography and left ventriculogram. Right femoral artery is cannulated with a 6 [place] sheath There were no complications. The finding of catheterization revealed a left ventricle that was mildly dilated and diffusely hypokinetic. Estimated ejection fraction is 60%. With coronary anatomy revealed a left dominant circulation. Right coronary artery is slightly canalized, is found to have a 30 to 40 percent stenosis in the midportion. The left main artery is unremarkable. The LED and diagonal vessels reveal mild and similar regularities without significant stenosis. Circumflex artery was a large vessel and revealed mild intimal irregularities but was free of significant disease. The patient tolerated the procedure well. Angio-Seal was used to close the femoral artery site. Estimated Blood Loss: None Complications: None Discharge & Condition: The patient tolerated the procedure well. Given these findings, the patient's treatment should be a cardiac risk free doctoral program. Will add an ebony inhibitor, as well as undergo counseling to stop smoking.
== END 2017-02-20 15:30 | disposition home or self-care (01) ==
LOC: CATH 06:09
PROVIDERS: ATTEND Internal Medicine Cardiovascular Disease
DX: I20.1 Angina pectoris with documented spasm (principal); I10 Essential (primary) hypertension; E11.9 Type 2 diabetes mellitus without complications; J44.9 Chronic obstructive pulmonary disease, unspecified; E78.00 Pure hypercholesterolemia, unspecified; E66.9 Obesity, unspecified; Z68.35 Body mass index [BMI] 35.0-35.9, adult; I42.9 Cardiomyopathy, unspecified; R94.39 Abnormal result of other cardiovascular function study; F17.200 Nicotine dependence, unspecified, uncomplicated
CPT/HCPCS: 36415; 80048; 85025; 85610; 85730; 86850; 86900; 93005; 93458; 99152; C1760; C1769; C2629; J1644; J2250; J3010; J7040 ×2; Q9967 ×2

== ENCOUNTER 2017-07-28 23:48 | Observation (INO) | payer OTHER ==
[2017-07-28 23:49] VITALS: BMI 35.2
--- NOTE | 2017-07-29 00:21 | ED PDOC ---
Arrival/HPI - General Chief Complaint: GI Problem Time Seen by Provider: 07/29/17 00:04 Historian: Patient - History of Present Illness Narrative History of Present Illness (Text): 07/29/17 00:18 Kennedi Wallis is a 51 year old male former smoker, whose past medical history includes CAD s/p angioplasty, diabetes, hypertension, and diverticulitis, who presents to the Emergency department complaining of hematochezia. Patient states 2 days prior he had 1 episode bright red bloody stool and 1 episode of bloody diarrhea earlier today. Patient reports associated lower abdominal pain and nausea. Patient notes he was previously admitted to the hospital for diverticulitis in the past but never followed up with GI for his outpatient colonoscopy. Patient denies any fever, chills, chest pain, shortness of breath, back pain, neck pain, headache, dizziness, or any other complaints. PMD: Dr. Galvan Time/Duration: < week (2 days prior) Symptom Onset: Gradual Symptom Course: Unchanged Activities at Onset: Light Context: Home Past Medical History - Provider Review Nursing Documentation Reviewed: Yes - Infectious Disease Hx of Infectious Diseases: None - Tetanus Immunization Tetanus Immunization: Unknown - Reproductive Currently : No - Cardiac Hx Cardiac Disorders: Yes Hx Hypertension: Yes - Pulmonary Hx Respiratory Disorders: Yes Hx Pneumonia: Yes - Neurological Hx Neurological Disorder: No - HEENT Hx HEENT Disorder: No - Renal Hx Renal Disorder: No - Endocrine/Metabolic Hx Endocrine Disorders: Yes Hx Diabetes Mellitus Type 2: Yes - Hematological/Oncological Hx Blood Disorders: No - Integumentary Hx Dermatological Disorder: No - Musculoskeletal/Rheumatological Hx Musculoskeletal Disorders: No - Gastrointestinal Hx Gastrointestinal Disorders: No - Genitourinary/Gynecological Hx Genitourinary Disorders: No - Psychiatric Hx Psychophysiologic Disorder: No Hx Substance Use: No (denies) - Past Surgical History Past Surgical History: No Previous - Surgical History Hx Cardiac Catheterization: Yes (x2) - Anesthesia Hx Anesthesia Reactions: No Hx Malignant Hyperthermia: No - Suicidal Assessment Feels Threatened In Home Enviroment: No Family/Social History - Physician Review Nursing Documentation Reviewed: Yes Family/Social History: Unknown Family HX Smoking Status: Former Smoker Hx Alcohol Use: No Hx Substance Use: No (denies) Hx Substance Use Treatment: No Allergies/Home Meds Allergies/Adverse Reactions: Allergies pcn Allergy (Severe, Uncoded 02/16/17 10:03) ANAPHYLAXIS Home Medications: Home Meds Medication Instructions Recorded Confirmed Diltiazem HCl [Diltiazem ER] 180 mg PO DAILY 02/13/17 07/29/17 Lisinopril [Zestril] 5 mg PO DAILY 02/13/17 07/29/17 Metformin ER [Glucophage XR] 500 mg PO DAILY 02/13/17 07/29/17 Aspirin [Ecotrin] 81 mg PO DAILY 02/16/17 07/29/17 Review of Systems - Physician Review All systems were reviewed & negative as marked: Yes - Review of Systems Constitutional: Normal. absent: Fevers Eyes: Normal ENT: Normal Respiratory: Normal. absent: SOB, Cough Cardiovascular: Normal. absent: Chest Pain Gastrointestinal: Abdominal Pain, Nausea, Hematochezia Genitourinary Male: Normal. absent: Dysuria, Frequency, Hematuria, Urinary Output Changes Musculoskeletal: Normal. absent: Back Pain, Neck Pain Skin: Normal. absent: Rash Neurological: Normal. absent: Headache, Dizziness Endocrine: Normal Hemo/Lymphatic: Normal Psychiatric: Normal Physical Exam Vital Signs Reviewed: Yes Vital Signs Temp Pulse Resp BP Pulse Ox 07/29/17 02:14 78 16 95/65 L 98 07/29/17 01:00 75 16 106/66 98 07/29/17 00:02 98.3 F 90 16 119/70 96 Temperature: Afebrile Blood Pressure: Normal Pulse: Regular Respiratory Rate: Normal Appearance: Positive for: Well-Appearing, Non-Toxic, Comfortable Pain Distress: None Mental Status: Positive for: Alert and Oriented X 3 - Systems Exam Head: Present: Atraumatic, Normocephalic Pupils: Present: PERRL Extroacular Muscles: Present: EOMI Conjunctiva: Present: Normal Mouth: Present: Moist Mucous Membranes Neck: Present: Normal Range of Motion Respiratory/Chest: Present: Clear to Auscultation, Good Air Exchange. No: Respiratory Distress, Accessory Muscle Use Cardiovascular: Present: Regular Rate and Rhythm, Normal S1, S2. No: Murmurs Abdomen: Present: Tenderness (Lower abdominal tenderness to palpation), Distention (Mild distention), Normal Bowel Sounds. No: Peritoneal Signs Back: Present: Normal Inspection Upper Extremity: Present: Normal Inspection. No: Cyanosis, Edema Lower Extremity: Present: Normal Inspection. No: Edema Neurological: Present: GCS=15, CN II-XII Intact, Speech Normal Skin: Present: Warm, Dry, Normal Color. No: Rashes Psychiatric: Present: Alert, Oriented x 3, Normal Insight, Normal Concentration Medical Decision Making ED Course and Treatment: 07/29/17 00:18 Impression: 51 year old male complaining of hematochezia, lower abdominal pain, and nausea x2 days. Differential Diagnosis included but are not limited to: diverticular disease vs. GI bleed vs. colitis Plan: -- CT Abdomen and Pelvis with IV contrast -- EKG -- CXR -- Labs, blood type and screen -- IV fluids -- Protonix -- Reassess and disposition Prior Visits: Notes and results from previous visits were reviewed. On 11/03/2016, pt was seen in the Emergency department for LLQ pain. CT Abdomen and Pelvis showed acute diverticulits. Pt was admitted to the hospital for further evaluation. Progress Notes: Reviewed EKG, NSR at [address]-segment elevations or depressions, no T-wave inversions, normal intervals. 07/29/17 00:50 Reviewed CXR, shows no acute processes. 07/29/17 02:50 Reviewed radiology, CT Abdomen and Pelvis shows: Lower thorax: No acute findings. ABDOMEN: Liver: Unremarkable. No mass. Gallbladder and bile ducts: No calcified stones. No ductal dilation. Pancreas: No ductal dilation. No mass. Spleen: No splenomegaly. Adrenals: Myelolipoma of RIGHT adrenal gland. Kidneys and ureters: Few too small to characterize lesions within kidneys. No hydronephrosis. Stomach and bowel: Scattered diverticula within colon. No associated inflammatory stranding. No definite mural thickening. No obstruction. Appendix: Normal caliber. No inflammation. PELVIS: Bladder: Unremarkable. Reproductive: Unremarkable as visualized. ABDOMEN and PELVIS: Intraperitoneal space: No significant fluid collection. No free air. Bones/joints: Chronic L5 pars defects. No acute fracture. Soft tissues: Unremarkable. Vasculature: Minimal atherosclerotic disease. No aneurysm. Lymph nodes: No pathologically enlarged lymph nodes. IMPRESSION: 1. Diverticulosis without definite CT evidence of diverticulitis. 2. Incidental/non-acute findings are described above. 07/29/17 03:[address] Sepulveda, who is aware and agrees with plan. Accepts pt in to hospitalist service. Pt will go to Telemetry observation GI bleed. residential aide notified. - Lab Interpretations Lab Results: 07/29/17 00:20 12 00:20 Lab Results 07/29/17 00:20: Blood Type O NEGATIVE, Antibody Screen Negative, BBK History Checked Patient has bt 07/29/17 00:20: WBC 10.6, RBC 4.01, Hgb 12.3 L, Hct 37.2 L, MCV 92.8, MCH 30.7, MCHC 33.1, RDW 13.1, Plt Count 342, MPV 9.5 07/29/17 00:20: PT 11.1, INR 1.02, APTT 29.7 07/29/17 00:20: Sodium 140, Potassium 4.2, Chloride 103, Carbon Dioxide 29, Anion Gap 13, BUN 22 H, Creatinine 1.3, Est GFR ( Amer) > 60, Est GFR ( Non-Af Amer) 58, Random Glucose 132 H, Calcium 8.9, Total Bilirubin 0.3, AST 34 , ALT 41, Alkaline Phosphatase 95, Total Protein 7.1, Albumin 4.1, Globulin 3.0 , Albumin/Globulin Ratio 1.3 - RAD Interpretation Radiology Orders: 07/29/17 00:20 CHEST PORTABLE [RAD] Stat 07/29/17 00:21 ABD & PELVIS IV CONTRAST ONLY [CT] Stat Community Health Worker: ED Physician - EKG Interpretation Interpreted by ED Physician: Yes Type: 12 lead EKG - Medication Orders Current Medication Orders: Discontinued Medications Sodium Chloride (Sodium Chloride 0.9%) 1,000 mls @ 999 mls/hr IV .Q1H1M STA Stop: 07/29/17 01:22 Last Admin: 07/29/17 00:26 Dose: 999 mls/hr eMAR Start Stop Document 07/29/17 00:26 YP (Rec: 07/29/17 00:26 YP [id number]) Intravenous Solution Start Date 07/29/17 Start Time 00:26 End Date 07/29/17 End time 01:26 Total Infusion Time 60 Pantoprazole Sodium (Protonix Inj) 40 mg IVP ONCE STA Stop: 07/29/17 00:23 Last Admin: 07/29/17 00:35 Dose: 40 mg IVP Administration Document 07/29/17 00:35 YP (Rec: 07/29/17 00:35 YP [id number]) Charges for Administration # of IVP Administrations 1 - Scribe Statement The provider has reviewed the documentation as recorded by the Scribklever Velez All medical record entries made by the Scribe were at my direction and personally dictated by me. I have reviewed the chart and agree that the record accurately reflects my personal performance of the history, physical exam, medical decision making, and the department course for this patient. I have also personally directed, reviewed, and agree with the discharge instructions and disposition. Disposition/Present on Arrival - Present on Arrival Any Indicators Present on Arrival: No History of DVT/PE: No History of Uncontrolled Diabetes: No Urinary Catheter: No History of Decub. Ulcer: No History Surgical Site Infection Following: None - Disposition Have Diagnosis and Disposition been Completed?: Yes Diagnosis: GI bleed Disposition: HOSPITALIZED Disposition Time: 03:25 Condition: STABLE Referrals: Daniella Galvan DO [Primary Care Provider] - Follow up with primary Forms: [employer] (Croatian)
[2017-07-29] MEDS ORDERED: Sodium Chloride 0.9% 1,000 ML IV STA (00:22)
[2017-07-29 01:05] LABS: ALB/GLOB RATIO 1.3 (1.1-1.8); ALKALINE PHOSPHATASE 95 U/L (38-126); ALT/SGPT 41 U/L (7-56); AST/SGOT 34 U/L (17-59); BILIRUBIN,TOTAL 0.3 mg/dL (0.2-1.3); BLOOD UREA NITROGEN 22 mg/dL (7-21); CALCIUM 8.9 mg/dL (8.4-10.5); CARBON DIOXIDE 29 mmol/L (21-33); CHLORIDE 103 mmol/L (98-107); GFR AFRICAN-AMERICAN > 60; GLUCOSE,RANDOM 132 mg/dL (70-110); POTASSIUM 4.2 mmol/L (3.6-5.0); SODIUM 140 mmol/L (132-148); TOTAL PROTEIN 7.1 g/dL (5.8-8.3)
[2017-07-29 01:07] LABS: HEMATOCRIT 37.2 % (42.0-52.0); MEAN CELL VOLUME 92.8 fl (80.0-105.0); MEAN CORPUSCULAR HEMOGLOBIN 30.7 pg (25.0-35.0); MEAN CORPUSCULAR HGB CONC 33.1 g/dl (31.0-37.0); MEAN PLATELET VOLUME 9.5 fl (7.0-11.0); RED CELL DISTRIBUTION WIDTH 13.1 % (11.5-14.5); WHITE BLOOD COUNT 10.6 10^3/ul (4.5-11.0)
[2017-07-29 01:09] LABS: INR 1.02 (0.93-1.08); PARTIAL THROMBOPLASTIN TIME 29.7 Seconds (25.1-36.5)
[2017-07-29] MEDS ORDERED: Iohexol 350 MG/100 ML VIAL ONE (01:38)
--- NOTE | 2017-07-29 02:48 | CT ---
EXAM: CT Abdomen and Pelvis With Intravenous Contrast CLINICAL HISTORY: 51 years old, male; Pain; Abdominal pain; Additional info: Abdominal pain/gi bleed/pmhx. Diverticulitis TECHNIQUE: Axial computed tomography images of the abdomen and pelvis with intravenous contrast. All CT scans at this facility use one or more dose reduction techniques, viz.: automated exposure control; ma/kV adjustment per patient size (including targeted exams where dose is matched to indication; i.e. head); or iterative reconstruction technique. Coronal and sagittal reformatted images were created and reviewed. CONTRAST: 100 mL of [id number] administered intravenously. COMPARISON: CT - ABD PELVIS IV CONTRAST ONLY 2016-11-03 20:29 FINDINGS: Lower thorax: No acute findings. ABDOMEN: Liver: Unremarkable. No mass. Gallbladder and bile ducts: No calcified stones. No ductal dilation. Pancreas: No ductal dilation. No mass. Spleen: No splenomegaly. Adrenals: Myelolipoma of RIGHT adrenal gland. Kidneys and ureters: Few too small to characterize lesions within kidneys. No hydronephrosis. Stomach and bowel: Scattered diverticula within colon. No associated inflammatory stranding. No definite mural thickening. No obstruction. Appendix: Normal caliber. No inflammation. PELVIS: Bladder: Unremarkable. Reproductive: Unremarkable as visualized. ABDOMEN and PELVIS: Intraperitoneal space: No significant fluid collection. No free air. Bones/joints: Chronic L5 pars defects. No acute fracture. Soft tissues: Unremarkable. Vasculature: Minimal atherosclerotic disease. No aneurysm. Lymph nodes: No pathologically enlarged lymph nodes. IMPRESSION: 1. Diverticulosis without definite CT evidence of diverticulitis. 2. Incidental/non-acute findings are described above.
--- NOTE | 2017-07-29 03:31 | CP.PCM.HP ---
History of Present Illness - History of Present Illness History of Present Illness: CC: Blood Per Rectum Subjective: HPI: Patient is a 51 year old male with past medical history of CAD s/p angioplasty, diabetes, hypertension, hpl, and diverticulitis who presents to the emergency department via EMS for evaluation and treatment of bright red blood per rectum. States that he had 1 episode bright red bloody stool 2 days ago and 1 episode of bloody diarrhea earlier today. Patient reports associated epigastric discomfort and dull aching lower abdominal pain after eating a meal. Patient notes he was previously admitted to the hospital for diverticulitis in the past but never followed up with GI for his outpatient colonoscopy. Denies recent travel and sick contacts. Patient denies intractable headache, fever, chills, dizziness, blurry vision, ringing in the ears, chest pain, shortness of breath, nausea, vomiting, constipation, and urinary symptoms. ROS: 12 point review of systems negative except as indicated in HPI PMHx: CAD s/p angioplasty x 2 , diabetes, hypertension, hpl, and diverticulitis PSHx: Angioplasty 2016. 1 vessel 90% stenosis, s/p PTCA Allergies- PCN Family Hx: DM - mother and sister Social Hx: former smoker tobacco 1 ppd x 35 yrs quit 9 months ago, denies etoh use; + marijuana use; lives at home with his family Medications: Please see medication reconciliation PMD: Dr. Math[facility] [employer] Dr. Hernandez: Physical Examination: - Constitutional Appears: Non-toxic, No Acute Distress - Head Exam Head Exam: atraumatic, normocephalic - Eye Exam Eye Exam: Normal appearance, PERRL. absent: Scleral icterus - ENT Exam ENT Exam: Mucous Membranes Moist - Neck Exam Neck exam: Normal Inspection - Respiratory Exam Respiratory Exam: Normal Breathing Pattern - Cardiovascular Exam Cardiovascular Exam: +S1, +S2. absent: Gallop, JVD - GI/Abdominal Exam GI & Abdominal Exam: tender to palpation in epigastric and lower abdominal regions, Normal Bowel Sounds, absent: Distended, Guarding, Pulsatile Mass, Rebound, Rigid - Rectal Exam Recatal Exam: deferred at this time; importance of performing exam was discussed with patient Extremities Exam Extremities exam: Negative for: calf tenderness - Neurological Exam Neurological exam: Patient is awake, alert, responds to verbal stimuli, answers questions appropriately, follows commands, and moves extremities past midline - Psychiatric Exam Psychiatric exam: Normal Affect, Normal Mood - Skin Skin Exam: warm and dry Assessment and Plan: Patient is a 51 year old male with past medical history of CAD s/p angioplasty, diabetes, hypertension, hyperlipidemia, and diverticulitis who is admitted for evaluation and treatment of bright red blood per rectum. GI Bleed - CT of abdomen pelvis reviewed and appreciated- Diverticulosis without definite CT evidence of diverticulitis. - NPO - 2 large bore PIV - IVF NS @ 100 - protonix 40 IV q12 - type and screen if transfusion is required - H and H q6 - GI consulted- appreciate recommendations Nausea/Vomitting - zofran - IVF NS @ 100 - NPO Anemia - Hgb reviewed, trended, and appreciated - monitor closely via h and h- secondary to GI bleed - transfuse if hgb< 7 Hx of CAD - hold aspirin due to GI bleed - c/w statin - EKG reviewed and appreciated- no defining ST T wave changes Hx of Htn - hold home cardizem for now due to low BP - hydralazine 5mg IV q6 prn SBP > 180, holding parameters- do not administer if HR is > 100 bpm Hx of Hyperlipidemia - c/w statin Hx of Diabetes - hold home diabetic medications - fingersticks ACHS - insulin sliding scale- lispro medium - resume diet as carb consistent Prophylaxis - DVT ppx- scd - GI ppx- protonix Patient case discussed with and plan approved by attending physician. 07/29/17 03:22 Present on Admission - Present on Admission Any Indicators Present on Admission: No Past Patient History - Infectious Disease Hx of Infectious Diseases: None - Tetanus Immunizations Tetanus Immunization: Unknown - Past Social History Smoking Status: Former Smoker - CARDIAC Hx Cardiac Disorders: Yes Hx Hypertension: Yes - PULMONARY Hx Respiratory Disorders: Yes Hx Pneumonia: Yes - NEUROLOGICAL Hx Neurological Disorder: No - HEENT Hx HEENT Problems: No - RENAL Hx Chronic Kidney Disease: No - ENDOCRINE/METABOLIC Hx Endocrine Disorders: Yes Hx Diabetes Mellitus Type 2: Yes - HEMATOLOGICAL/ONCOLOGICAL Hx Blood Disorders: No - INTEGUMENTARY Hx Dermatological Problems: No - MUSCULOSKELETAL/RHEUMATOLOGICAL Hx Musculoskeletal Disorders: No - GASTROINTESTINAL Hx Gastrointestinal Disorders: No - GENITOURINARY/GYNECOLOGICAL Hx Genitourinary Disorders: No - PSYCHIATRIC Hx Psychophysiologic Disorder: No Hx Substance Use: No (denies) - SURGICAL HISTORY Hx Cardiac Catheterization: Yes (x2) - ANESTHESIA Hx Anesthesia Reactions: No Hx Malignant Hyperthermia: No Meds Allergies/Adverse Reactions: Allergies Allergy/AdvReac Type Severity Reaction Status Date / Time pcn Allergy Severe ANAPHYLAXIS Uncoded 02/16/17 10:03 Results - Vital Signs Recent Vital Signs: Last Vital Signs Temp 98.3 F 07/29/17 00:02 Pulse 78 07/29/17 02:14 Resp 16 07/29/17 02:14 BP 95/65 L 07/29/17 02:14 Pulse Ox 98 07/29/17 02:14 - Labs Result Diagrams: 07/29/17 00:20 07/29/17 00:20 Labs: Laboratory Results - last 24 hr 07/29/17 07/29/17 07/29/17 00:20 00:20 00:20 WBC 10.6 RBC 4.01 Hgb 12.3 L Hct 37.2 L MCV 92.8 MCH 30.7 MCHC 33.1 RDW 13.1 Plt Count 342 MPV 9.5 PT 11.1 INR 1.02 APTT 29.7 Sodium 140 Potassium 4.2 Chloride 103 Carbon Dioxide 29 Anion Gap 13 BUN 22 H Creatinine 1.3 Est GFR ( Amer) > 60 Est GFR (Non-Af Amer) 58 Random Glucose 132 H Calcium 8.9 Total Bilirubin 0.3 AST 34 ALT 41 Alkaline Phosphatase 95 Total Protein 7.1 Albumin 4.1 Globulin 3.0 Albumin/Globulin Ratio 1.3 Blood Type Antibody Screen BBK History Checked 07/29/17 00:20 WBC RBC Hgb Hct MCV MCH MCHC RDW Plt Count MPV PT INR APTT Sodium Potassium Chloride Carbon Dioxide Anion Gap BUN Creatinine Est GFR ( Amer) Est GFR (Non-Af Amer) Random Glucose Calcium Total Bilirubin AST ALT Alkaline Phosphatase Total Protein Albumin Globulin Albumin/Globulin Ratio Blood Type O NEGATIVE Antibody Screen Negative BBK History Checked Patient has bt
[2017-07-29] MEDS ORDERED: Sodium Chloride 0.9% 1,000 ML IV SCH (03:45)
[2017-07-29 06:07] LABS: BASO # 0.04 K/mm3 (0.0-2.0); BASO % 0.4 % (0.0-3.0); EOS # 0.3 (0.0-0.7); EOS % 3.2 % (1.5-5.0); GRAN # 5.11 (1.4-6.5); GRAN % 50.3 % (50.0-68.0); HEMATOCRIT 37.4 % (42.0-52.0); LYMPH # 3.9 (1.2-3.4); LYMPH % 38.7 % (22.0-35.0); MEAN CELL VOLUME 93.5 fl (80.0-105.0); MEAN CORPUSCULAR HGB CONC 32.1 g/dl (31.0-37.0); MEAN PLATELET VOLUME 9.5 fl (7.0-11.0); MONO # 0.8 (0.1-0.6); MONO % 7.4 % (1.0-6.0); RED CELL DISTRIBUTION WIDTH 13.4 % (11.5-14.5); WHITE BLOOD COUNT 10.1 10^3/ul (4.5-11.0)
[2017-07-29 06:21] LABS: ALB/GLOB RATIO 1.3 (1.1-1.8); ALKALINE PHOSPHATASE 81 U/L (38-126); ALT/SGPT 37 U/L (7-56); AST/SGOT 25 U/L (17-59); BILIRUBIN,TOTAL 0.3 mg/dL (0.2-1.3); BLOOD UREA NITROGEN 20 mg/dL (7-21); CALCIUM 8.7 mg/dL (8.4-10.5); CARBON DIOXIDE 27 mmol/L (21-33); CHLORIDE 103 mmol/L (98-107); GFR AFRICAN-AMERICAN > 60; GLUCOSE,RANDOM 107 mg/dL (70-110); POTASSIUM 4.4 mmol/L (3.6-5.0); SODIUM 139 mmol/L (132-148); TOTAL PROTEIN 6.7 g/dL (5.8-8.3)
[2017-07-29 07:09] LABS: CHOLESTEROL 130 mg/dL (130-200)
[2017-07-29] MEDS: Insulin Lispro (humaLOG) MEDIUM Coverage SC SCH ×2 (07:57→11:48)
--- NOTE | 2017-07-29 09:33 | RAD ---
HISTORY: abdominal pain COMPARISON: No prior. FINDINGS: LUNGS: No active pulmonary disease. PLEURA: No significant pleural effusion identified, no pneumothorax apparent. CARDIOVASCULAR: Normal. OSSEOUS STRUCTURES: No significant abnormalities. VISUALIZED UPPER ABDOMEN: Normal. OTHER FINDINGS: None. IMPRESSION: No active disease.
--- NOTE | 2017-07-29 10:44 | CARD ---
APPROVED REPORT EKG Measurement Heart [id number] <Conclusion> Normal sinus rhythm Normal ECG
[2017-07-29 11:07] VITALS: O2SAT 98
[2017-07-29 12:07] VITALS: BP 137/81; PULSE 76; RESP 20; TEMP 98.3
--- NOTE | 2017-07-29 13:59 | CP.PCM.CON ---
<Asad Hardwick - Last Filed: 07/29/17 14:01> History of Present Illness - History of Present Illness History of Present Illness: PGY4 Initial GI Consult Kennedi Wallis is a 51 year old Gabones[place] male with PMHx significant for DM, CAD s /p angioplasty, and diverticulitis who presented to the ED with complaint of BRBPR. He states that he had 1 episode bright red bloody stool 2 days ago and 1 episode of bloody diarrhea yesterday. Patient reports associated epigastric discomfort and dull aching lower abdominal pain after eating a meal. He reports no additional episodes of rectal bleed since admission. He currently denies any abd pain, fever, or chills. He was admitted in October at [facility] [place] [facility] for uncomplicated sigmoid diverticulitis. It was his 2nd episode in 1 year.He was supposed to follow-up with GI as an outpt for colonoscopy 6-8 weeks after discharge. He denies any follow-up and colonoscopy since last admission. Denies recent travel and sick contacts.Denies any melena, vomiting, weight loss. Initial CT A/ P with IV contrast performed in the ED revealed acute sigmoid diverticulitis. PMHx: See HPI PSHx: Coronary angioplasty FHx: Mother/Sister - DM Social: +tobacco 35 pack yrs, Denies EtOH use, + marijuana use Endo: No prior endoscopic evaluations ROS: 12-point ROS conducted neg other than above Past Patient History - Infectious Disease Hx of Infectious Diseases: None - Tetanus Immunizations Tetanus Immunization: Unknown - Past Social History Smoking Status: Former Smoker - CARDIAC Hx Hypercholesterolemia: Yes Hx Hypertension: Yes - PULMONARY Hx Pneumonia: Yes - NEUROLOGICAL Hx Neurological Disorder: No - HEENT Hx HEENT Problems: No - RENAL Hx Chronic Kidney Disease: No - ENDOCRINE/METABOLIC Hx Diabetes Mellitus Type 2: Yes - HEMATOLOGICAL/ONCOLOGICAL Hx Blood Disorders: No - INTEGUMENTARY Hx Dermatological Problems: No - MUSCULOSKELETAL/RHEUMATOLOGICAL Hx Falls: No - GASTROINTESTINAL Hx Diverticulitis: Yes - GENITOURINARY/GYNECOLOGICAL Hx Genitourinary Disorders: No - PSYCHIATRIC Hx Substance Use: No - SURGICAL HISTORY Hx Coronary Stent: Yes (2015) - ANESTHESIA Hx Anesthesia Reactions: No Hx Malignant Hyperthermia: No Meds Allergies/Adverse Reactions: Allergies Allergy/AdvReac Type Severity Reaction Status Date / Time pcn Allergy Severe ANAPHYLAXIS Uncoded 02/16/17 10:03 Physical Exam - Constitutional Appears: Well, No Acute Distress - Head Exam Head Exam: ATRAUMATIC, NORMOCEPHALIC - Eye Exam Eye Exam: Normal appearance - ENT Exam ENT Exam: Mucous Membranes Moist - Respiratory Exam Respiratory Exam: Clear to Auscultation Bilateral, NORMAL BREATHING PATTERN. absent: Rales, Rhonchi, Wheezes, Respiratory Distress - Cardiovascular Exam Cardiovascular Exam: REGULAR RHYTHM, +S1, +S2 - GI/Abdominal Exam GI & Abdominal Exam: Normal Bowel Sounds, Soft. absent: Guarding, Rebound, Rigid - Extremities Exam Extremities exam: Negative for: joint swelling, pedal edema - Neurological Exam Neurological exam: Alert, Oriented x3 - Psychiatric Exam Psychiatric exam: Normal Affect, Normal Mood - Skin Skin Exam: Dry, Intact, Normal Color, Warm Results - Vital Signs Recent Vital Signs: Last Vital Signs Temp 98.3 F 07/29/17 12:00 Pulse 76 07/29/17 12:00 Resp 20 07/29/17 12:00 BP 137/81 07/29/17 12:00 Pulse Ox 98 07/29/17 09:00 - Labs Result Diagrams: 07/29/17 05:00 07/29/17 05:00 Labs: Laboratory Results - last 24 hr 07/29/17 07/29/17 05:00 05:00 WBC 10.1 RBC 4.00 Hgb 12.0 L Hct 37.4 L MCV 93.5 MCH 30.0 MCHC 32.1 RDW 13.4 Plt Count 327 MPV 9.5 Gran % 50.3 Lymph % (Auto) 38.7 H Slope % (Auto) 7.4 H Eos % (Auto) 3.2 Baso % (Auto) 0.4 Gran # 5.11 Lymph # 3.9 H Slope # 0.8 H Eos # 0.3 Baso # 0.04 Sodium 139 Potassium 4.4 Chloride 103 Carbon Dioxide 27 Anion Gap 13 BUN 20 Creatinine 1.1 Est GFR ( Amer) > 60 Est GFR (Non-Af Amer) > 60 Random Glucose 107 Calcium 8.7 Total Bilirubin 0.3 AST 25 ALT 37 Alkaline Phosphatase 81 Total Protein 6.7 Albumin 3.7 Globulin 3.0 Albumin/Globulin Ratio 1.3 Triglycerides 210 H Cholesterol 130 LDL Cholesterol Direct 66 HDL Cholesterol 24 L Assessment & Plan - Assessment and Plan (Free Text) Assessment: Kennedi Wallis is a 51M w/ hx of diverticulitis who presents with BRBPR x2 episodes at home. His hgb is 12 (BASELINE 14). Lower GI bleed likely 2/2 diverticular bleed hx of diverticulitis, need follow-up colonoscopy to r/o malignancy or IBD Plan: -pt stable, no change in vitals -no need for transfusion of PRBC at this time -keep hgb > 9 -can advance diet to goal -no indication for colonoscopy at this time, since diverticular bleeds are often self limiting -recommend f/u with GI luis miguel as an oupt (he has made an appt with KALEY bolanos in [place], [place]) or can make a follow-up with Dr. Schulte as an oupt -can d/c from GI standpoint D/W Dr. Schulte <Eris ROBERTSONBarrow Neurological Institutejose david - Last Filed: 07/29/17 21:34> Results - Vital Signs Recent Vital Signs: Last Vital Signs Temp 98.3 F 07/29/17 12:00 Pulse 76 07/29/17 12:00 Resp 20 07/29/17 12:00 BP 137/81 07/29/17 12:00 Pulse Ox 98 07/29/17 09:00 - Labs Result Diagrams: 07/29/17 05:00 07/29/17 05:00 Labs: Laboratory Results - last 24 hr 07/29/17 07/29/17 07/29/17 05:00 05:00 07:07 WBC 10.1 RBC 4.00 Hgb 12.0 L Hct 37.4 L MCV 93.5 MCH 30.0 MCHC 32.1 RDW 13.4 Plt Count 327 MPV 9.5 Gran % 50.3 Lymph % (Auto) 38.7 H [place] % (Auto) 7.4 H Eos % (Auto) 3.2 Baso % (Auto) 0.4 Gran # 5.11 Lymph # 3.9 H Slope # 0.8 H Eos # 0.3 Baso # 0.04 Sodium 139 Potassium 4.4 Chloride 103 Carbon Dioxide 27 Anion Gap 13 BUN 20 Creatinine 1.1 Est GFR ( Amer) > 60 Est GFR (Non-Af Amer) > 60 POC Glucose (mg/dL) 98 Random Glucose 107 Calcium 8.7 Total Bilirubin 0.3 AST 25 ALT 37 Alkaline Phosphatase 81 Total Protein 6.7 Albumin 3.7 Globulin 3.0 Albumin/Globulin Ratio 1.3 Triglycerides 210 H Cholesterol 130 LDL Cholesterol Direct 66 HDL Cholesterol 24 L 07/29/17 10:55 WBC RBC Hgb Hct MCV MCH MCHC RDW Plt Count MPV Gran % Lymph % (Auto) Slope % (Auto) Eos % (Auto) Baso % (Auto) Gran # Lymph # Slope # Eos # Baso # Sodium Potassium Chloride Carbon Dioxide Anion Gap BUN Creatinine Est GFR ( Amer) Est GFR (Non-Af Amer) POC Glucose (mg/dL) 87 Random Glucose Calcium Total Bilirubin AST ALT Alkaline Phosphatase Total Protein Albumin Globulin Albumin/Globulin Ratio Triglycerides Cholesterol LDL Cholesterol Direct HDL Cholesterol Attending/Attestation - Attestation I have personally seen and examined this patient.: Yes I have fully participated in the care of the patient.: Yes I have reviewed all pertinent clinical information: Yes Notes (Text): 07/29/17 21:32 Patient seen lew today with GI fellow. This is a 51 yr old M with history of diverticulitis who presents with BRBPR x 2 episodes at home. Hb drop of 2 gm from baseline. No s/s of overt bleeding since admission. Hemodynamically stabe. Can follow as outpatient for colonoscopy- has outpatient appointment with GI on Monday. Regular diet
--- NOTE | 2017-07-29 18:31 | CP.PCM.DIS ---
<Jayant Winchester - Last Filed: 07/29/17 18:27> Provider - Provider Date of Admission: 07/29/17 03:23 Attending physician: Bertha Oquendo MD Primary care physician: Daniella Galvan DO Consults: GI: Eris Time Spent in preparation of Discharge (in minutes): 45 Diagnosis - Discharge Diagnosis (1) GI bleed Status: Acute Hospital Course - Lab Results Lab Results: Most Recent Lab Values WBC 10.1 10^3/ul (4.5-11.0) 07/29/17 05:00 RBC 4.00 10^6/uL (3.5-6.1) 07/29/17 05:00 Hgb 12.0 g/dL (14.0-18.0) L 07/29/17 05:00 Hct 37.4 % (42.0-52.0) L 07/29/17 05:00 MCV 93.5 fl (80.0-105.0) 07/29/17 05:00 MCH 30.0 pg (25.0-35.0) 07/29/17 05:00 MCHC 32.1 g/dl (31.0-37.0) 07/29/17 05:00 RDW 13.4 % (11.5-14.5) 07/29/17 05:00 Plt Count 327 10^3/uL (120.0-450.0) 07/29/17 05:00 MPV 9.5 fl (7.0-11.0) 07/29/17 05:00 Gran % 50.3 % (50.0-68.0) 07/29/17 05:00 Lymph % (Auto) 38.7 % (22.0-35.0) H 07/29/17 05:00 [place] % (Auto) 7.4 % (1.0-6.0) H 07/29/17 05:00 Eos % (Auto) 3.2 % (1.5-5.0) 07/29/17 05:00 Baso % (Auto) 0.4 % (0.0-3.0) 07/29/17 05:00 Gran # 5.11 (1.4-6.5) 07/29/17 05:00 Lymph # 3.9 (1.2-3.4) H 07/29/17 05:00 [place] # 0.8 (0.1-0.6) H 07/29/17 05:00 Eos # 0.3 (0.0-0.7) 07/29/17 05:00 Baso # 0.04 K/mm3 (0.0-2.0) 07/29/17 05:00 PT 11.1 SECONDS (9.4-12.5) 07/29/17 00:20 INR 1.02 (0.93-1.08) 07/29/17 00:20 APTT 29.7 Seconds (25.1-36.5) 07/29/17 00:20 Sodium 139 mmol/L (132-148) 07/29/17 05:00 Potassium 4.4 mmol/L (3.6-5.0) 07/29/17 05:00 Chloride 103 mmol/L (98-107) 07/29/17 05:00 Carbon Dioxide 27 mmol/L (21-33) 07/29/17 05:00 Anion Gap 13 (10-20) 07/29/17 05:00 BUN 20 mg/dL (7-21) 07/29/17 05:00 Creatinine 1.1 mg/dl (0.8-1.5) 07/29/17 05:00 Est GFR ( Amer) > 60 07/29/17 05:00 Est GFR (Non-Af Amer) > 60 07/29/17 05:00 POC Glucose (mg/dL) 87 mg/dL (65-110) 07/29/17 10:55 Random Glucose 107 mg/dL (70-110) 07/29/17 05:00 Calcium 8.7 mg/dL (8.4-10.5) 07/29/17 05:00 Total Bilirubin 0.3 mg/dL (0.2-1.3) 07/29/17 05:00 AST 25 U/L (17-59) 07/29/17 05:00 ALT 37 U/L (7-56) 07/29/17 05:00 Alkaline Phosphatase 81 U/L (38-126) 07/29/17 05:00 Total Protein 6.7 g/dL (5.8-8.3) 07/29/17 05:00 Albumin 3.7 g/dL (3.0-4.8) 07/29/17 05:00 Globulin 3.0 gm/dL 07/29/17 05:00 Albumin/Globulin Ratio 1.3 (1.1-1.8) 07/29/17 05:00 Triglycerides 210 mg/dL (35-160) H 07/29/17 05:00 Cholesterol 130 mg/dL (130-200) 07/29/17 05:00 LDL Cholesterol Direct 66 mg/dL (0-129) 07/29/17 05:00 HDL Cholesterol 24 mg/dL (29-60) L 07/29/17 05:00 Blood Type O NEGATIVE 07/29/17 00:20 Antibody Screen Negative 07/29/17 00:20 BBK History Checked Patient has bt 07/29/17 00:20 - Hospital Course Hospital Course: Patient is a 51 year old male with past medical history of CAD s/p angioplasty, diabetes, hypertension, hyperlipidemia, and diverticulitis who was admitted for evaluation and treatment of bright red blood per rectum. After admission, patient's vitals remained stable, and repeat CBC showed no drop in his H&H. He did not have any more episodes of BRBPR in the hospital. He was seen by GI who recommended outpatient endoscopic evaluation. Today patient feels well overall, denies abdominal pain, nausea, vomiting, diarrhea, lightheadedness, hematochezia , hemoptysis, melena. Patient was tolerating his diet well with no particular complaints. He was instructed to follow up with his primary care doctor, and his preparing box tender. All questions were answered to his satifaction, and he was discharged to home. Discharge Exam - Head Exam Head Exam: ATRAUMATIC, NORMOCEPHALIC - Eye Exam Eye Exam: EOMI, Normal appearance, PERRL. absent: Scleral icterus - ENT Exam ENT Exam: Mucous Membranes Moist - Neck Exam Neck exam: Normal Inspection - Respiratory Exam Respiratory Exam: Clear to PA & Lateral, NORMAL BREATHING PATTERN - Cardiovascular Exam Cardiovascular Exam: REGULAR RHYTHM, +S1, +S2 - GI/Abdominal Exam GI & Abdominal Exam: Normal Bowel Sounds, Soft. absent: Distended, Firm, Guarding, Rigid, Tenderness - Rectal Exam Rectal Exam: Deferred - Extremities Exam Extremities exam: normal inspection - Neurological Exam Neurological exam: Alert, Oriented x3 - Psychiatric Exam Psychiatric exam: Normal Affect, Normal Mood - Skin Skin Exam: Dry, Intact Discharge Plan - Follow Up Plan Condition: STABLE Disposition: HOME/ ROUTINE Instructions: Gastrointestinal Bleeding (GEN), Rectal Bleeding (GEN), Heart Healthy Diet (GEN), Cholesterol and Your Health (GEN) Additional Instructions: 1. Continue to take all home medications as prescribed 2. Follow up with your primary care doctor within 1-2 weeks 3. Follow up with with your GI doctor as indicated, for outpatient endoscopy 4. For any new or worsening concerns, contact your PCP immediately or return to ER Dr. Schulte (a) #[phone]: [address] (b) #[phone]: [address] [place] [address] ([address]) Diet: Heart Healthy, low cholesterol Patient states he will discuss the flu and the pneumococcal vaccines with his primary physician. Referrals: Eris ROBERTSON,MD Elsie [Medical Doctor] - Daniella Galvan DO [Primary Care Provider] - <Bertha Oquendo - Last Filed: 07/29/17 18:42> Provider - Provider Date of Admission: 07/29/17 03:23 Attending physician: Bertha Oquendo MD Primary care physician: Daniella Galvan DO Hospital Course - Lab Results Lab Results: Most Recent Lab Values WBC 10.1 10^3/ul (4.5-11.0) 07/29/17 05:00 RBC 4.00 10^6/uL (3.5-6.1) 07/29/17 05:00 Hgb 12.0 g/dL (14.0-18.0) L 07/29/17 05:00 Hct 37.4 % (42.0-52.0) L 07/29/17 05:00 MCV 93.5 fl (80.0-105.0) 07/29/17 05:00 MCH 30.0 pg (25.0-35.0) 07/29/17 05:00 MCHC 32.1 g/dl (31.0-37.0) 07/29/17 05:00 RDW 13.4 % (11.5-14.5) 07/29/17 05:00 Plt Count 327 10^3/uL (120.0-450.0) 07/29/17 05:00 MPV 9.5 fl (7.0-11.0) 07/29/17 05:00 Gran % 50.3 % (50.0-68.0) 07/29/17 05:00 Lymph % (Auto) 38.7 % (22.0-35.0) H 07/29/17 05:00 [place] % (Auto) 7.4 % (1.0-6.0) H 07/29/17 05:00 Eos % (Auto) 3.2 % (1.5-5.0) 07/29/17 05:00 Baso % (Auto) 0.4 % (0.0-3.0) 07/29/17 05:00 Gran # 5.11 (1.4-6.5) 07/29/17 05:00 Lymph # 3.9 (1.2-3.4) H 07/29/17 05:00 [place] # 0.8 (0.1-0.6) H 07/29/17 05:00 Eos # 0.3 (0.0-0.7) 07/29/17 05:00 Baso # 0.04 K/mm3 (0.0-2.0) 07/29/17 05:00 PT 11.1 SECONDS (9.4-12.5) 07/29/17 00:20 INR 1.02 (0.93-1.08) 07/29/17 00:20 APTT 29.7 Seconds (25.1-36.5) 07/29/17 00:20 Sodium 139 mmol/L (132-148) 07/29/17 05:00 Potassium 4.4 mmol/L (3.6-5.0) 07/29/17 05:00 Chloride 103 mmol/L (98-107) 07/29/17 05:00 Carbon Dioxide 27 mmol/L (21-33) 07/29/17 05:00 Anion Gap 13 (10-20) 07/29/17 05:00 BUN 20 mg/dL (7-21) 07/29/17 05:00 Creatinine 1.1 mg/dl (0.8-1.5) 07/29/17 05:00 Est GFR ( Amer) > 60 07/29/17 05:00 Est GFR (Non-Af Amer) > 60 07/29/17 05:00 POC Glucose (mg/dL) 87 mg/dL (65-110) 07/29/17 10:55 Random Glucose 107 mg/dL (70-110) 07/29/17 05:00 Calcium 8.7 mg/dL (8.4-10.5) 07/29/17 05:00 Total Bilirubin 0.3 mg/dL (0.2-1.3) 07/29/17 05:00 AST 25 U/L (17-59) 07/29/17 05:00 ALT 37 U/L (7-56) 07/29/17 05:00 Alkaline Phosphatase 81 U/L (38-126) 07/29/17 05:00 Total Protein 6.7 g/dL (5.8-8.3) 07/29/17 05:00 Albumin 3.7 g/dL (3.0-4.8) 07/29/17 05:00 Globulin 3.0 gm/dL 07/29/17 05:00 Albumin/Globulin Ratio 1.3 (1.1-1.8) 07/29/17 05:00 Triglycerides 210 mg/dL (35-160) H 07/29/17 05:00 Cholesterol 130 mg/dL (130-200) 07/29/17 05:00 LDL Cholesterol Direct 66 mg/dL (0-129) 07/29/17 05:00 HDL Cholesterol 24 mg/dL (29-60) L 07/29/17 05:00 Blood Type O NEGATIVE 07/29/17 00:20 Antibody Screen Negative 07/29/17 00:20 BBK History Checked Patient has bt 07/29/17 00:20 Attending/Attestation - Attestation I have personally seen and examined this patient.: Yes I have fully participated in the care of the patient.: Yes I have reviewed all pertinent clinical information, including history, physical exam and plan: Yes Notes (Text): 07/29/17 18:39 51 year old male with past medical history of CAD, diabetes, hypertension and diverticulitis who presented with complaint of bright red blood per rectum. He had a CT scan which showed diverticulosis without diverticulitis. His hemoglobin remained stable and he had no further episodes in hospital. He was seen by GI and cleared for discharge with outpatient follow up with his GI for elective EGD/colonoscopy. Patient is discharged home to follow up with his pmd. Follow up with GI for elective EGD/colonoscopy. Bertha Oquendo MD Hospitalist.
== END 2017-07-29 13:17 | disposition home or self-care (01) ==
LOC: ED 23:48 → ERH 07-29 03:23 → 2RSO 07-29 04:55
PROVIDERS: ADMIT Hospitalist; ATTEND Internal Medicine
DX: K57.91 Diverticulosis of intestine, part unspecified, without perforation or abscess with bleeding (principal); D50.0 Iron deficiency anemia secondary to blood loss (chronic); E11.9 Type 2 diabetes mellitus without complications; E78.00 Pure hypercholesterolemia, unspecified; E78.5 Hyperlipidemia, unspecified; I10 Essential (primary) hypertension; I25.10 Atherosclerotic heart disease of native coronary artery without angina pectoris; Z79.82 Long term (current) use of aspirin; Z79.899 Other long term (current) drug therapy; Z83.3 Family history of diabetes mellitus; Z87.01 Personal history of pneumonia (recurrent); Z87.891 Personal history of nicotine dependence; Z95.5 Presence of coronary angioplasty implant and graft; Z88.0 Allergy status to penicillin; Z87.892 Personal history of anaphylaxis; R40.2412 Glasgow coma scale score 13-15, at arrival to emergency department; F12.90 Cannabis use, unspecified, uncomplicated
CPT/HCPCS: 71010; 74177; 80053; 80061; 82948; 83036; 85025; 85027; 85610; 85730; 86850; 86900; 93005; 96361; 96374; 96376; 99285; C9113; G0378; J7040; Q9967

== ENCOUNTER 2018-04-14 01:59 | Emergency (ER) | payer OTHER ==
[2018-04-14 02:00] VITALS: BMI 33.5
[2018-04-14 02:12] VITALS: RESP 18; TEMP 98.3
[2018-04-14] MEDS ORDERED: DiphenhydrAMINE 12.5 mg/5 ml LIQ UD (5 ml) PO STA (02:59)
--- NOTE | 2018-04-14 03:08 | ED PDOC ---
Arrival/HPI - General Chief Complaint: Abnormal Skin Integrity Time Seen by Provider: 04/14/18 02:49 Historian: Patient - History of Present Illness Narrative History of Present Illness (Text): 04/14/18 03:05 A 52 year old male, whose past medical history includes diabetes type 2 and anxiety, presents to the emergency department complaining of rash to bilateral lower and upper extremities since arriving for 2 days. Patient reports he went fishing while in [place] recently. Mentions while fishing, he was wearing shorts and short-sleeved shirt, and was bitten what he suspects was a mosquito, and since then rash has been in location where he was not covered. States experiencing similar rash when he ate fish in [place] with bugs around as well. No tick bites. Patient denies any shortness of breath, chest pain, fever, chills , cough, abdominal pain, nausea, vomiting, diarrhea, palpitations, constipation , or any other complaints at this time. PMD: Dr. Daniella Galvan 04/14/18 03:58 Time/Duration: < week (2 days) Symptom Onset: Sudden Symptom Course: Unchanged Past Medical History - Provider Review Nursing Documentation Reviewed: Yes - Infectious Disease Hx of Infectious Diseases: None - Tetanus Immunization Tetanus Immunization: Unknown - Cardiac Hx Cardiac Disorders: Yes Hx Hypertension: Yes Other/Comment: CAD s/p angioplasty - Pulmonary Hx Respiratory Disorders: Yes Hx Pneumonia: Yes - Neurological Hx Neurological Disorder: No - HEENT Hx HEENT Disorder: No - Renal Hx Renal Disorder: No Hx Kidney Stones: No - Endocrine/Metabolic Hx Endocrine Disorders: Yes Hx Diabetes Mellitus Type 2: Yes - Hematological/Oncological Hx Blood Disorders: No Hx Anemia: No - Integumentary Hx Dermatological Disorder: No - Musculoskeletal/Rheumatological Hx Musculoskeletal Disorders: No - Gastrointestinal Hx Gastrointestinal Disorders: No Hx Diverticulitis: Yes - Genitourinary/Gynecological Hx Genitourinary Disorders: No - Psychiatric Hx Psychophysiologic Disorder: Yes Hx Anxiety: Yes Hx Substance Use: No - Past Surgical History Past Surgical History: No Previous - Surgical History Hx Angioplasty: Yes Hx Cardiac Catheterization: Yes (x2) Hx Coronary Stent: Yes (2016) Other/Comment: Angioplasty X2 - Anesthesia Hx Anesthesia: Yes Hx Anesthesia Reactions: No Hx Malignant Hyperthermia: No - Suicidal Assessment Feels Threatened In Home Enviroment: No Family/Social History - Physician Review Nursing Documentation Reviewed: Yes Family/Social History: No Known Family HX Smoking Status: Former Smoker Hx Alcohol Use: No Hx Substance Use: No Hx Substance Use Treatment: No Allergies/Home Meds Allergies/Adverse Reactions: Allergies Penicillins Allergy (Verified 04/14/18 02:09) ANAPHYLAXIS Home Medications: Home Meds Medication Instructions Recorded Confirmed Diltiazem HCl [Diltiazem ER] 180 mg PO DAILY 02/13/17 04/14/18 Lisinopril [Zestril] 5 mg PO DAILY 02/13/17 04/14/18 MetFORMIN ER [Glucophage XR] 500 mg PO DAILY 02/13/17 04/14/18 Aspirin [Ecotrin] 81 mg PO DAILY 02/16/17 04/14/18 traZODone [trazODONE HYDROCHLORIDE] 50 mg PO HS 04/14/18 04/14/18 Review of Systems - Review of Systems Constitutional: absent: Fevers, Night Sweats Eyes: Normal ENT: Normal Respiratory: absent: SOB, Cough Cardiovascular: absent: Chest Pain, Palpitations Gastrointestinal: absent: Abdominal Pain, Constipation, Diarrhea, Nausea, Vomiting Genitourinary Male: Normal Musculoskeletal: Normal Skin: Rash (bilateral upper and lower extremities.) Neurological: Normal Endocrine: Normal Hemo/Lymphatic: Normal Psychiatric: Normal Physical Exam Vital Signs Reviewed: Yes Vital Signs Temp Pulse Resp BP Pulse Ox 04/14/18 04:05 78 18 128/84 99 04/14/18 02:10 98.3 F 82 18 134/89 100 Temperature: Afebrile Blood Pressure: Normal Pulse: Regular Respiratory Rate: Normal Appearance: Positive for: Well-Appearing, Non-Toxic, Comfortable Pain Distress: None Mental Status: Positive for: Alert and Oriented X 3 - Systems Exam Head: Present: Atraumatic, Normocephalic Pupils: Present: PERRL Extroacular Muscles: Present: EOMI Conjunctiva: Present: Normal Mouth: Present: Moist Mucous Membranes Neck: Present: Normal Range of Motion Respiratory/Chest: Present: Clear to Auscultation, Good Air Exchange. No: Respiratory Distress, Accessory Muscle Use Cardiovascular: Present: Regular Rate and Rhythm, Normal S1, S2. No: Murmurs Abdomen: No: Tenderness, Distention, Peritoneal Signs Back: Present: Normal Inspection Upper Extremity: Present: Normal Inspection. No: Cyanosis, Edema Lower Extremity: Present: Normal Inspection. No: Edema Neurological: Present: GCS=15, CN II-XII Intact, Speech Normal Skin: Present: Rashes (bilateral upper and lower extremities. over non-covered area of shorts and t shirt. pinpoint, samll <2mm erythematous and itchy papules , non-vevsicular, non crop like.) Psychiatric: Present: Alert, Oriented x 3, Normal Insight, Normal Concentration Medical Decision Making ED Course and Treatment: 04/14/18 03:12 Impression: 52 year old male with rash bilateral upper and lower extremities. Pattern is bug bike like, pt denies any other constitutional symptoms. No tick bite. No SJS or TEN like. No new meds. Bug bites spare palms and soles. No poison anne exposure Plan: -- Benadryl -- Reassess and disposition Progress Notes: Itching resolved w/ benadryl. Pt notes he has benadryl at home. will have pt f/ u w/ derm outpt. 04/14/18 05:53 - Medication Orders Current Medication Orders: Discontinued Medications Diphenhydramine HCl (Benadryl) 25 mg PO STAT STA Stop: 04/14/18 03:00 Last Admin: 04/14/18 03:11 Dose: 25 mg - Scribe Statement The provider has reviewed the documentation as recorded by the Johanna Cabral Provider Scribe Attestation: All medical record entries made by the Scribe were at my direction and personally dictated by me. I have reviewed the chart and agree that the record accurately reflects my personal performance of the history, physical exam, medical decision making, and the department course for this patient. I have also personally directed, reviewed, and agree with the discharge instructions and disposition. Disposition/Present on Arrival - Present on Arrival Any Indicators Present on Arrival: No History of DVT/PE: No History of Uncontrolled Diabetes: No Urinary Catheter: No History of Decub. Ulcer: No History Surgical Site Infection Following: None - Disposition Have Diagnosis and Disposition been Completed?: Yes Diagnosis: Bug bite Disposition: HOME/ ROUTINE Disposition Time: 03:59 Condition: GOOD Discharge Instructions (ExitCare): Insect Bites and Stings, Insect Bites and Stings (DC) Additional Instructions: TAKE BENADRYL PRESCRIBED ON THE BOTTLE. DO NOT DRINK OR DRIVE HEAVY MACHINERY WHILE TAKING BENADRYL. RAMSES CRAWFORD, thank you for letting us take care of you today. Your provider was Julio Puente and you were treated for RASH. The emergency medical care you received today was directed at your acute symptoms. If you were prescribed any medication, please fill it and take as directed. It may take several days for your symptoms to resolve. Return to the Emergency Department if your symptoms worsen, do not improve, or if you have any other problems. Please contact your doctor or call one of the physicians/clinics you have been referred to that are listed on the Patient Visit Information form that is included in your discharge packet. Bring any paperwork you were given at discharge with you along with any medications you are taking to your follow up visit. Our treatment cannot replace ongoing medical care by a primary care provider outside of the emergency department. Thank you for allowing the [facility] team to be part of your care today. If you had an X-Ray or CT scan: A Radiologist will review the ED reading if any change in treatment is needed we will contact you. If you had a blood, urine, or wound culture: It will take several days for the results, if any change in treatment is needed we will contact you. If you had an STI test: It will take 48 hours for the results. Please call after 1 week if you have not heard back. Referrals: Daniella Galvan DO [Primary Care Provider] - Follow up with primary Zachary Gamble MD [Staff Provider] - Follow up with primary Forms: [employer] (Filipino)
[2018-04-14 04:18] VITALS: BP 128/84; PULSE 78; O2SAT 99
== END 2018-04-14 04:05 | disposition home or self-care (01) ==
LOC: ED 01:59
DX: S40.862A Insect bite (nonvenomous) of left upper arm, initial encounter (principal); S40.861A Insect bite (nonvenomous) of right upper arm, initial encounter; S80.862A Insect bite (nonvenomous), left lower leg, initial encounter; S80.861A Insect bite (nonvenomous), right lower leg, initial encounter; W57.XXXA Bitten or stung by nonvenomous insect and other nonvenomous arthropods, initial encounter; E11.9 Type 2 diabetes mellitus without complications; F41.9 Anxiety disorder, unspecified; I10 Essential (primary) hypertension; Z87.891 Personal history of nicotine dependence